=== PATIENT | male | born 1955 | race Caucasian/White ===

== ENCOUNTER → 2020-01-06 11:31 | Outpatient (BNVA) | payer OTHER, SELFPAY | PROVIDERS: PCP Family Medicine; Visit Provider Internal Medicine Endocrinology, Diabetes & Metabolism | DX: E11.65 Type 2 diabetes mellitus with hyperglycemia (principal); E11.42 Type 2 diabetes mellitus with diabetic polyneuropathy; E11.319 Type 2 diabetes mellitus with unspecified diabetic retinopathy without macular edema; E78.5 Hyperlipidemia, unspecified; I10 Essential (primary) hypertension; E66.3 Overweight; Z68.25 Body mass index [BMI] 25.0-25.9, adult; Z79.4 Long term (current) use of insulin; Z79.899 Other long term (current) drug therapy | CPT/HCPCS: 82947; 99212 ==

== ENCOUNTER 2020-01-18 15:15 | Outpatient (REF) | payer OTHER, SELFPAY | END 2020-01-18 15:16 | disposition home or self-care (01) | LOC: HO.LAB 15:15 | PROVIDERS: Visit Provider Internal Medicine | DX: Z20.828 Contact with and (suspected) exposure to other viral communicable diseases (principal) | CPT/HCPCS: C9803; U0003 ==

== ENCOUNTER → 2020-04-06 09:48 | Outpatient (BNVA) | payer OTHER, SELFPAY | PROVIDERS: PCP Family Medicine; Visit Provider Internal Medicine Endocrinology, Diabetes & Metabolism | DX: E11.65 Type 2 diabetes mellitus with hyperglycemia (principal); E11.40 Type 2 diabetes mellitus with diabetic neuropathy, unspecified; E11.319 Type 2 diabetes mellitus with unspecified diabetic retinopathy without macular edema; E78.5 Hyperlipidemia, unspecified; E66.3 Overweight; I10 Essential (primary) hypertension | CPT/HCPCS: 82947; 99212 ==

== ENCOUNTER → 2020-08-27 11:45 | Outpatient (BNVA) | payer OTHER, SELFPAY | PROVIDERS: PCP Family Medicine; Visit Provider Nurse Practitioner Gerontology | DX: E11.65 Type 2 diabetes mellitus with hyperglycemia (principal); E11.40 Type 2 diabetes mellitus with diabetic neuropathy, unspecified; E11.319 Type 2 diabetes mellitus with unspecified diabetic retinopathy without macular edema; E78.5 Hyperlipidemia, unspecified; E66.3 Overweight; Z68.27 Body mass index [BMI] 27.0-27.9, adult; I10 Essential (primary) hypertension; Z71.3 Dietary counseling and surveillance; Z79.4 Long term (current) use of insulin | CPT/HCPCS: 82947; 99212 ==

== ENCOUNTER → 2020-11-27 07:40 | Outpatient (BNVA) | payer OTHER, SELFPAY | PROVIDERS: PCP Family Medicine; Visit Provider Nurse Practitioner Gerontology | DX: E11.65 Type 2 diabetes mellitus with hyperglycemia (principal); E11.40 Type 2 diabetes mellitus with diabetic neuropathy, unspecified; E11.319 Type 2 diabetes mellitus with unspecified diabetic retinopathy without macular edema; E78.5 Hyperlipidemia, unspecified; E66.3 Overweight; I10 Essential (primary) hypertension | CPT/HCPCS: 82947; 83036; 99212 ==

== ENCOUNTER → 2020-12-31 12:53 | Outpatient (BNVA) | payer OTHER, SELFPAY | PROVIDERS: PCP Family Medicine; Visit Provider Registered Nurse Diabetes Educator | DX: E11.65 Type 2 diabetes mellitus with hyperglycemia (principal); E11.40 Type 2 diabetes mellitus with diabetic neuropathy, unspecified; E11.319 Type 2 diabetes mellitus with unspecified diabetic retinopathy without macular edema; E78.5 Hyperlipidemia, unspecified; E66.9 Obesity, unspecified; I10 Essential (primary) hypertension; F17.210 Nicotine dependence, cigarettes, uncomplicated; Z79.4 Long term (current) use of insulin; Z96.41 Presence of insulin pump (external) (internal); Z46.81 Encounter for fitting and adjustment of insulin pump | CPT/HCPCS: 99211 ==

== ENCOUNTER → 2021-02-06 12:35 | Outpatient (BNVA) | payer OTHER, SELFPAY | PROVIDERS: PCP Family Medicine; Visit Provider Registered Nurse Diabetes Educator | DX: E11.319 Type 2 diabetes mellitus with unspecified diabetic retinopathy without macular edema (principal) | CPT/HCPCS: 99211 ==

== ENCOUNTER → 2021-04-04 13:01 | Outpatient (BNVA) | payer OTHER, SELFPAY | PROVIDERS: PCP Family Medicine; Visit Provider Nurse Practitioner Gerontology | DX: E11.65 Type 2 diabetes mellitus with hyperglycemia (principal); E11.40 Type 2 diabetes mellitus with diabetic neuropathy, unspecified; E11.319 Type 2 diabetes mellitus with unspecified diabetic retinopathy without macular edema; E66.3 Overweight | CPT/HCPCS: 82947; 83036; 99212 ==

== ENCOUNTER → 2021-05-29 10:50 | Outpatient (BNVA) | payer OTHER, SELFPAY | PROVIDERS: PCP Family Medicine; Visit Provider Registered Nurse Diabetes Educator | DX: E11.319 Type 2 diabetes mellitus with unspecified diabetic retinopathy without macular edema (principal); Z79.4 Long term (current) use of insulin; Z96.41 Presence of insulin pump (external) (internal) | CPT/HCPCS: 99211 ==

== ENCOUNTER 2021-07-05 10:04 | Outpatient (REF) | payer OTHER, SELFPAY ==
[2021-07-05 11:13] LABS: Alanine Aminotransferase 14 U/L (0-40); Albumin Level 4.2 g/dL (3.5-5.0); Alkaline Phosphatase 73 U/L (39-117); Anion Gap 9 (12-20); Aspartate Amino Transferase 17 U/L (5-37); Bilirubin Total 0.4 mg/dL (0.0-1.0); Blood Urea Nitrogen 17 mg/dL (9-16); Calcium 9.5 mg/dL (8.4-10.2); Carbon Dioxide 25 mmol/L (22-29); Chloride 104 mmol/L (96-108); Cholesterol 159 mg/dL; Estimated Glomerular Filt Rate > 60; Glucose Fasting 127 mg/dL (60-99); HDL Cholesterol 28 mg/dL; LDL Cholesterol Calculated 85 mg/dl; Potassium 4.3 mmol/L (3.3-5.1); Sodium 134 mmol/L (135-145); Total Protein 7.4 g/dL (6.5-8.0); Triglycerides 233 mg/dL
[2021-07-05 11:51] LABS: Vitamin B12 312 pg/mL (200-900)
[2021-07-05 12:47] LABS: Creatinine Urine 84.26 mg/dL; Microalbum/Creatinine Ratio Ur 100.8 ug/mg cr
[2021-07-07 03:31] LABS: LDL Cholesterol Direct 86 mg/dL (<100)
== END 2021-07-05 10:05 | disposition home or self-care (01) ==
LOC: HO.LAB 10:04
PROVIDERS: PCP Family Medicine; Visit Provider Nurse Practitioner Gerontology
DX: E11.65 Type 2 diabetes mellitus with hyperglycemia (principal); E11.40 Type 2 diabetes mellitus with diabetic neuropathy, unspecified; E11.319 Type 2 diabetes mellitus with unspecified diabetic retinopathy without macular edema; E78.5 Hyperlipidemia, unspecified; E66.3 Overweight; I10 Essential (primary) hypertension; F17.210 Nicotine dependence, cigarettes, uncomplicated; Z96.41 Presence of insulin pump (external) (internal); Z71.3 Dietary counseling and surveillance; Z89.422 Acquired absence of other left toe(s); Z79.4 Long term (current) use of insulin; Z79.899 Other long term (current) drug therapy
CPT/HCPCS: 36415; 80053; 80061; 82043; 82607; 82947; 83036; 83721; 99212

== ENCOUNTER 2022-05-02 07:51 | Outpatient (REF) | payer MEDICAID, SELFPAY ==
[2022-05-02 09:49] LABS: Glucose Random 233 mg/dL (60-115)
[2022-05-03 17:52] LABS: C Peptide 0.69 ng/mL (0.80-3.85)
== END 2022-05-02 07:52 | disposition home or self-care (01) ==
LOC: HO.LAB 07:51
PROVIDERS: PCP Family Medicine; Visit Provider Internal Medicine Endocrinology, Diabetes & Metabolism
DX: E11.65 Type 2 diabetes mellitus with hyperglycemia (principal)
CPT/HCPCS: 36415; 82947; 83036; 84681; 99212

== ENCOUNTER → 2022-05-15 08:54 | Outpatient (BNVA) | payer MEDICAID, SELFPAY | PROVIDERS: PCP Family Medicine; Visit Provider Dietitian, Registered | DX: E11.65 Type 2 diabetes mellitus with hyperglycemia (principal) | CPT/HCPCS: 97802 ==

== ENCOUNTER → 2022-06-30 12:50 | Outpatient (BNVA) | payer MEDICAID, SELFPAY | PROVIDERS: PCP Family Medicine; Visit Provider Dietitian, Registered | DX: E11.65 Type 2 diabetes mellitus with hyperglycemia (principal) | CPT/HCPCS: 97803 ==

== ENCOUNTER → 2022-07-28 11:24 | Outpatient (BNVA) | payer MEDICAID, SELFPAY | PROVIDERS: PCP Family Medicine; Visit Provider Registered Nurse Diabetes Educator | DX: Z46.81 Encounter for fitting and adjustment of insulin pump (principal); E11.40 Type 2 diabetes mellitus with diabetic neuropathy, unspecified | CPT/HCPCS: 99211 ==

== ENCOUNTER 2022-10-23 11:28 | Outpatient (AMB) | payer MEDICAID, SELFPAY ==
--- NOTE | 2022-10-23 11:29 | A.OFFVIS_ITS ---
Intake Vital Signs 10/23/22 11:30 Height 6 ft Weight 204 lb 12.951 oz BMI 27.8 BP 134/54 L Blood Pressure Location Lt brachial Position Sitting Pulse 77 Pulse Source Pulse Oximeter Intake Visit Reasons: DM Intake Note: Patient present today to follow up on Type Diabetes Mellitus. Patient receives DME supplies through: [employer] Patient receives pump supplies through: [employer] Last Diabetic Eye exam: 04/2022 Last Podiatry Visit: None Random Glucose: 316 mg/dl HgA1C: 9.3% Lab Intern Required: No Accompanied by: Self / Same As Patient Allergies No Known Allergies Allergy (Verified 10/23/22 11:33) Medication List - Last Reconciled 10/23/22 by Antony Miller MD ammonium lactate 12% 1 appl topical BID 30 days aspirin (Adult Aspirin Regimen) 81 mg PO DAILY blood sugar diagnostic (FreeStyle Lite Strips) As directed 3 times a day blood-glucose meter (FreeStyle Lite Meter kit) As directed blood-glucose sensor (Dexcom G6 Sensor device) As directed blood-glucose transmitter (Dexcom G4 Transmitter device) As directed clopidogrel (Plavix) 75 mg PO DAILY [diabetic shoes extra depth orthopedic shoes ( 1 pair ) with customize heat molded multi density inner soles ( 3 pair) Dispense 1 Sig: As directed DX: And IDDM /polyneuropathy ( E11 0.42 ); hammertoe foot deformity ( M 20.41, and 20.42 ) pre ulcerative skin lesion ( L 85.1 ) Diagnosis ( E11 0.42 ) type 2 diabetes with polyneuropathy] [Diabetic shoes & 3 pair inserts as directed] dolutegravir-rilpivirine 50-25 mg (Juluca) 1 tab PO DAILY insulin aspart U-100 (Novolog U-100 Insulin aspart) up to 100 units via pump subcut daily; lancets (FreeStyle Lancets) As directed lisinopril 30 mg PO DAILY rosuvastatin 40 mg PO DAILY HPI HPI Comments History of Present Illness Details Patient is a 66-year-old male with DM type 2 diagnosed 25 years ago who presents for management of diabetes Past medical history includes : DM2, HTN, HLD, amputations of 2 toes on left foot in 2019. Micro and macrovascular complications: retinopathy, neuropathy Diabetes medications: Novolog via Tandem T-slim pump. Patient: Pito Torres Basal rate(s) (units/hour) : ?New 12 AM to 6 AM? 1.85 units / hr ?New 6 AM to 10:30 AM? 1.65 units / hr 10:30 AM to 4 PM? 1.35 units / hr 4 PM to 5 PM? 1.35 units / hr 5 PM to 8 PM? 1.75 units / hr 8 PM to 12 AM 1.850 units / hr Bolus setting Insulin Carbohydrate Ratio (s) 12 AM? to 4PM 1:5.5 5 PM to 12 AM? 1:5 ? Correction Factor / Sensitivity Factor 12 AM? to 12 AM? 1:20 Active Insulin Time:? 3 hours Target(s): 12 AM? to 12 AM? 115 mg/dL Insulin doses 86.56. 45% is basal and 46% is bolus with 9% correction per He is not using the sensor but average glucose is 174 with range of 82-265. He is testing 5 times a day MR#: [id number] : 1955 Acct:[id number] Age/Sex: 66 / M ADM/SER Date: 07/28/22 Loc: [facility] ADM/SER Time:1124 Attending Provider: Seema Patino RN cc: LANDEN CHAVEZ MD~ Intake Intake Visit Reasons:?DM Lab Intern Required: No Accompanied by: Self / Same As Patient Allergies No Known Allergies Allergy (Verified 05/02/22 07:59) HPI Comprehensive Diabetes Asmnt Most Recent Diabetes Results: ?? ? Microalb/Creat Rat io 100.8 ug/mg cr 07/05/21 ?? ? Cholesterol 159 mg/dL 07/05/21 ?? ? HDL Cholesterol 28 mg/dL 07/05/21 ?? ? Triglycerides 233 mg/dL 07/05/21 ?? ? Creatinine 0.98 mg/dL (0.5-1 .4) 07/05/21 ?? ? Blood Urea Nitroge n 17 mg/dL (9-16)? H 07/05/21 ?? ? Sodium 134 mmol/L (135-1 45)? L 07/05/21 ?? ? Potassium 4.3 mmol/L (3.3-5 .1) 07/05/21 ?? ? Chloride 104 mmol/L (96-10 8) 07/05/21 ?? ? Carbon Dioxide 25 mmol/L (22-29) 07/05/21 ?? ? Calcium 9.5 mg/dL (8.4-10 .2) 07/05/21 ?? ? AST 17 U/L (5-37) 07/05/21 ?? ? ALT 14 U/L (0-40) 07/05/21 ?? ? Total Protein 7.4 g/dL (6.5-8.0 ) 07/05/21 ?? ? Albumin 4.2 g/dL (3.5-5.0 ) 07/05/21 ? [facility] Medical History? Diabetes type 2, uncontrolled Diabetic neuropathy associated with type 2 diabetes mellitus Diabetic retinopathy associated with type 2 diabetes mellitus Dyslipidemia Hypertension Overweight (BMI 25.0-29.9) Surgical History? History of amputation of toe Hx of cholecystectomy Family History? Father?? Diabetes mellitusMother?? Diabetes mellitus Social History? Household Members:? Family Alcohol intake:? never Patient Tobacco Use Status:? Current everyday Tobacco user Cigarettes Per Day:? 4 Years Smoked:? 35 - Hypoglycemia: none Hyperglycemia: denies polyuria Because of pump malfunction, were unable to the download pump or sensor [facility] - dietitian - working with 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 - goes regularly, every 2-3 months Ophthalmology - 04/2022 Laboratory Tests 07/05/21 07/05/21 07/05/21 10:30 10:30 10:30 Creatinine 0.98 Estimated GFR > 60 Triglycerides 233 Cholesterol 159 LDL Cholesterol Di rect Pending LDL Cholesterol, C alc 85 HDL Cholesterol 28 Vitamin B12 Pending [facility] Medical History Diabetes type 2, uncontrolled Diabetic neuropathy associated with type 2 diabetes mellitus Diabetic retinopathy associated with type 2 diabetes mellitus Dyslipidemia Hypertension Overweight (BMI 25.0-29.9) Surgical History History of amputation of toe Hx of cholecystectomy Family History Father Diabetes mellitus Mother Diabetes mellitus Social History Household Members: Family Alcohol intake: never Patient Tobacco Use Status: Current everyday Tobacco user Cigarettes Per Day: 4 Years Smoked: 35 Physical Exam Vital Signs: Last Vital Signs Pulse 77 10/23/22 11:30 BP 134/54 L 10/23/22 11:30 BMI result Body Mass Index 27.8 Absence of Cushingoid features. Absence of acromegalic features. Neck exam reveals nl size thyroid about 15 gms. No thyroid nodules palpable. No carotid bruits present. Lungs CTA. Heart S1 S2, Reg R/R. No M/R/ G. Skin exam reveals absence of vitiligo or acanthosis nigricans. Abdominal exam reveals Soft NT/ND with NA BS. No organomegaly present. Neck Other: . Extrem Other: Visual exam of foot performed. No ulcerations or open lesions. No onchomycosis, no callouses.Pulses 2 + distally Sensation decresed to monofilament exam. Vibratory sensation sensed is decreased with 128 Hz tuning fork Results AMB Hemoglobin A1c AMB Hemoglobin A1c 9.3 % Last Edit by Salima Mendiola on 10/23/22 11:49 Results Reviewed Results Reviewed: 10/23/22 11:39 Glucose, Whole Blood Routine Laboratory Last Values Glucose (Clinic) 316 mg/dL (60-115) H 10/23/22 11:39 Assessment & Plan Assessment & Plan (1) Diabetes type 2, uncontrolled: Code(s): E11.65 - Type 2 diabetes mellitus with hyperglycemia Plan: This 66-year-old male with history of type 2 diabetes being treated with a tandem T-slim X 2 pump with control IQ with with poor glycemic control and known microvascular complications namely retinopathy and neuropathy. Plan is to have the patient obtain the G6 sensor to link to the tandem. I did not make any changes to the regimen today for lack of data. I will also check anti- PHANI 65 antibodies and if negative could consider using a G LP 1 in combination with the insulin pump. Patient will follow up with personal development educator. Will also check lipid profile microalbumin to creatinine ratio Orders: Orders Glutamic acid decarboxylase Ab Today E11.65 - Type 2 diabetes mellitus with hyperglycemia Lipid Panel Today E11.65 - Type 2 diabetes mellitus with hyperglycemia Microalbumin, Random (w Creat) Today E11.65 - Type 2 diabetes mellitus with hyperglycemia AMB Hemoglobin A1c Today E11.319 - Type 2 diabetes mellitus with unspecified diabetic retinopathy without macular edema Medications: New [diabetic shoes] extra depth orthopedic shoes ( 1 pair ) with customize heat molded multi density inner soles ( 3 pair) Dispense 1 Sig: As directed DX: And IDDM /polyneuropathy ( E11 0.42 ); hammertoe foot deformity ( M 20.41, and 20.42 ) pre ulcerative skin lesion ( L 85.1 ) Diagnosis ( E11 0.42 ) type 2 diabetes with polyneuropathy 1 ea 0RF Coding Level of Care Code Est Pt Level 4 (36140) Diagnoses Diabetes type 2, uncontrolled E11.65
[2022-10-23 11:30] VITALS: BP 134/54; PULSE 77; BMI 27.8
[2022-10-23 11:43] LABS: Glucose, Whole Blood 316 mg/dL (60-115)
== END 2022-10-23 12:42 | disposition home or self-care (01) ==
PROVIDERS: PCP Family Medicine; Visit Provider Internal Medicine Endocrinology, Diabetes & Metabolism
DX: E11.65 Type 2 diabetes mellitus with hyperglycemia (principal); E11.319 Type 2 diabetes mellitus with unspecified diabetic retinopathy without macular edema
CPT/HCPCS: 99214

== ENCOUNTER → 2022-10-23 11:28 | Outpatient (BNVA) | payer MEDICAID, SELFPAY | PROVIDERS: PCP Family Medicine; Visit Provider Internal Medicine Endocrinology, Diabetes & Metabolism | DX: E11.65 Type 2 diabetes mellitus with hyperglycemia (principal) | CPT/HCPCS: 82947; 83036; 99212 ==

== ENCOUNTER 2022-11-26 11:38 | Outpatient (AMB) | payer MEDICAID, SELFPAY ==
--- NOTE | 2022-11-26 11:41 | A.OFFVIS_ITS ---
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 Required: No Accompanied by: Self / Same As Patient Allergies No Known Allergies Allergy (Verified 10/23/22 11:33) HPI Comprehensive Diabetes Asmnt Most Recent Diabetes Results: No Data to Display [facility] Medical History Diabetes type 2, uncontrolled Diabetic neuropathy associated with type 2 diabetes mellitus Diabetic retinopathy associated with type 2 diabetes mellitus Dyslipidemia Hypertension Overweight (BMI 25.0-29.9) Surgical History History of amputation of toe Hx of cholecystectomy Family History Father Diabetes mellitus Mother Diabetes mellitus Social History Household Members: Family Alcohol intake: never Patient Tobacco Use Status: Current everyday Tobacco user Cigarettes Per Day: 4 Years Smoked: 35 Assessment & Plan Assessment & Plan (1) Diabetic neuropathy associated with type 2 diabetes mellitus: Code(s): E11.40 - Type 2 diabetes mellitus with diabetic neuropathy, unspecified Plan: Patient presents for pump training for? T slim with control IQ Dexcom G6 The following topics were reviewed today: Patient is now using integrated system - Sensor setting (if applicable) ??? High Alert: 180 mg/dl increased high target to 200 mg/dL, also set I alerts to go off every 2 hours instead of every 15 minutes ??? Low Alert: 80 mg/dl Patient's average glucose for the past 2 weeks 181 mg/dL Patient above target 43% Patient at target 56% Patient below target 1% Reviewed patient he is experiencing hyperglycemia between approximately 10:30 to 17:00. Discussed options for improving glucose level at that time. Patient opted to increase basal rate for that period of time see changes below Reviewed with patient importance of changing insulin delivery set/Pod every 72 hours, with site rotation. Patient given the opportunity to ask questions about pump function Setting verified by RD/CDE. Basal rate(s) (units/hour) : 12 AM to 6 AM? 1.85 units / hr 6 AM to 10:30 AM? 1.65 units / hr 10:30 AM to 4 PM? 1.35 units / hr New 10:30 AM to 4 PM? 1.65 units / hr 4 PM to 5 PM? 1.35 units / hr New 4 PM to 5 PM? 1.65 units / hr 5 PM to 8 PM? 1.75 units / hr 8 PM to 12 AM 1.850 units / hr Bolus setting Insulin Carbohydrate Ratio (s) 12 AM? to 4PM 1:5.5 4 PM to 12 AM? 1:5 ? Correction Factor / Sensitivity Factor 12 AM? to 12 AM? 1:20 Active Insulin Time:? 3 hours Target(s): 12 AM? to 12 AM? 110 mg/dL Patient Instructions: Patient will follow-up with family educator in 1 month Coding Level of Care Code Est Pt Level 1 (77343) Diagnoses Diabetic neuropathy associated with type 2 diabetes mellitus E11.40
== END 2022-11-26 12:05 | disposition home or self-care (01) ==
PROVIDERS: PCP Family Medicine; Visit Provider Registered Nurse Diabetes Educator
DX: E11.40 Type 2 diabetes mellitus with diabetic neuropathy, unspecified (principal)

== ENCOUNTER → 2022-11-26 11:38 | Outpatient (BNVA) | payer MEDICAID, SELFPAY | PROVIDERS: Visit Provider Registered Nurse Diabetes Educator | DX: Z46.81 Encounter for fitting and adjustment of insulin pump (principal); E11.40 Type 2 diabetes mellitus with diabetic neuropathy, unspecified; Z79.4 Long term (current) use of insulin | CPT/HCPCS: 99211 ==

== ENCOUNTER 2023-06-30 07:52 | Outpatient (REF) | payer MEDICAID, SELFPAY ==
[2023-06-30 09:03] LABS: Creatinine Urine 152.14 mg/dL; Microalbum/Creatinine Ratio Ur 80.8 ug/mg cr (<30)
[2023-06-30 09:05] LABS: Cholesterol 155 mg/dL (<200); HDL Cholesterol 33 mg/dL (>40); LDL Cholesterol Calculated 100 mg/dL (<100); Triglycerides 114 mg/dL (<150)
[2023-07-03 21:43] LABS: Glutamic acid decarboxylase Ab <5 IU/mL (<5)
== END 2023-06-30 07:53 | disposition home or self-care (01) ==
LOC: HO.LAB 07:52
PROVIDERS: PCP Family Medicine; Visit Provider Internal Medicine Endocrinology, Diabetes & Metabolism
DX: E11.65 Type 2 diabetes mellitus with hyperglycemia (principal)
CPT/HCPCS: 36415; 80061; 82043; 82570; 86341

== ENCOUNTER 2023-07-01 11:25 | Outpatient (AMB) | payer MEDICAID, SELFPAY ==
[2023-07-01 11:28] VITALS: BP 142/64; PULSE 78; BMI 28.9
--- NOTE | 2023-07-01 11:28 | A.OFFVIS_ITS ---
Vital Signs 07/01/23 11:28 Height 6 ft Weight 212 lb 15.465 oz BMI 28.9 BP 142/64 H Blood Pressure Location Lt brachial Position Sitting Pulse 78 Pulse Source Pulse Oximeter Intake Visit Reasons: DM Intake Note: Patient presents today to follow up on D2MT. Last Diabetic Eye exam: 01/2023 Last Podiatry Visit:Doesn't have one Random Glucose: 237 mg/dl HgA1c: 8.9% [employer] Planner Required: No Accompanied by: Self / Same As Patient Allergies No Known Allergies Allergy (Verified 07/01/23 11:32) HPI Comments Details: Patient is a 66-year-old male with DM type 2 diagnosed 25 years ago who presents for management of diabetes Past medical history includes : DM2, HTN, HLD, amputations of 2 toes on left foot in 2019. Micro and macrovascular complications: retinopathy, neuropathy Diabetes medications: Novolog via Tandem T-slim pump. Patient: Pito Torres Basal rate(s) (units/hour) : 12 AM to 6 AM? 1.85 units / hr 6 AM to 10:30 AM? 1.65 units / hr 10:30 AM to 4 PM? 1.35 units / hr New 10:30 AM to 4 PM? 1.65 units / hr 4 PM to 5 PM? 1.35 units / hr New 4 PM to 5 PM? 1.65 units / hr 5 PM to 8 PM? 1.75 units / hr 8 PM to 12 AM 1.850 units / hr Bolus setting Insulin Carbohydrate Ratio (s) 12 AM? to 4PM 1:5.5 5 PM to 12 AM? 1:5 ? Correction Factor / Sensitivity Factor 12 AM? to 12 AM? 1:20 Active Insulin Time:? 3 hours Target(s): 12 AM? to 12 AM? 110 mg/dL Patient Instructions: Insulin doses 100.1. 41% is basal and 59% is bolus with 17% correction per Dexcom download shows he is using the sensor 91.4% of the time. Average glucose is 171 with G mi of 7.4%. Glucoses remained 61% of the time with 38% hyperglycemia at 1% hypoglycemia. Patent shows post-breakfast and post-mid afternoon elevations Rare hypoglycemia Saw optho 6 mos a go MR#: [id number] : 1955 Acct:[id number] Age/Sex: 66 / M ADM/SER Date: 07/28/22 Loc: [facility] ADM/SER Time:1124 Attending Provider: Seema Patino RN cc: LANDEN CHAVEZ MD~ Intake Intake Visit Reasons:?DM [employer] Planner Required: No Accompanied by: Self / Same As Patient Allergies No Known Allergies Allergy (Verified 05/02/22 07:59) HPI Comprehensive Diabetes Asmnt Most Recent Diabetes Results: ?? ? Microalb/Creat Ratio 100.8 ug/mg cr 07/05/21 ?? ? Cholesterol 159 mg/dL 07/05/21 ?? ? HDL Cholesterol 28 mg/dL 07/05/21 ?? ? Triglycerides 233 mg/dL 07/05/21 ?? ? Creatinine 0.98 mg/dL (0.5-1.4) 07/05/21 ?? ? Blood Urea Nitrogen 17 mg/dL (9-16)? H 07/05/21 ?? ? Sodium 134 mmol/L (135-145)? L 07/05/21 ?? ? Potassium 4.3 mmol/L (3.3-5.1) 07/05/21 ?? ? Chloride 104 mmol/L (96-108) 07/05/21 ?? ? Carbon Dioxide 25 mmol/L (22-29) 07/05/21 ?? ? Calcium 9.5 mg/dL (8.4-10.2) 07/05/21 ?? ? AST 17 U/L (5-37)B 07/05/21 ?? ? ALT 14 U/L (0-40) 07/05/21 ?? ? Total Protein 7.4 g/dL (6.5-8.0) 07/05/21 ?? ? Albumin 4.2 g/dL (3.5-5.0) 07/05/21 ? PFSH Medical History? Diabetes type 2, uncontrolled Diabetic neuropathy associated with type 2 diabetes mellitus Diabetic retinopathy associated with type 2 diabetes mellitus Dyslipidemia Hypertension Overweight (BMI 25.0-29.9) Surgical History? History of amputation of toe Hx of cholecystectomy Family History? Father?? Diabetes mellitusMother?? Diabetes mellitus Social History? Household Members:? Family Alcohol intake:? never Patient Tobacco Use Status:? Current everyday Tobacco user Cigarettes Per Day:? 4 Years Smoked:? 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 regularly, every 2-3 months Ophthalmology - 04/2022 Laboratory Tests 07/05/21 07/05/21 07/05/21 10:30 10:30 10:30 Creatinine 0.98 Estimated GFR > 60 Triglycerides 233 Cholesterol 159 LDL Cholesterol Direct Pending LDL Cholesterol, Calc 85 HDL Cholesterol 28 Vitamin B12 Pending [facility] Medical History Diabetes type 2, uncontrolled Diabetic neuropathy associated with type 2 diabetes mellitus Diabetic retinopathy associated with type 2 diabetes mellitus Dyslipidemia Hypertension Overweight (BMI 25.0-29.9) Surgical History History of amputation of toe Hx of cholecystectomy Family History Father Diabetes mellitus Mother Diabetes mellitus Social History Household Members: Family Alcohol intake: never Patient Tobacco Use Status: Current everyday Tobacco user Cigarettes Per Day: 4 Years Smoked: 35 Physical Exam Vital Signs: Last Vital Signs Pulse 78 07/01/23 11:28 BP 142/64 H 07/01/23 11:28 BMI result Body Mass Index 28.9 Absence of Cushingoid features. Absence of acromegalic features. Neck exam reveals nl size thyroid about 15 gms. No thyroid nodules palpable. No carotid bruits present. Lungs CTA. Heart S1 S2, Reg R/R. No M/R/ G. Skin exam reveals absence of vitiligo or acanthosis nigricans. Abdominal exam reveals Soft NT/ND with NA BS. No organomegaly present. Neck Other: . Extrem Other: S/P amputations of R 4th and 5th toes Visual exam of foot performed. No ulcerations or open lesions. No onchomycosis, no callouses.Pulses 2 + distally Sensation decresed to monofilament exam. Vibratory sensation sensed is decreased with 128 Hz tuning fork Results AMB Hemoglobin A1c AMB Hemoglobin A1c 8.9 % Last Edit by NALLELY Gayle on 07/01/23 11:45 Results Reviewed Results Reviewed: Laboratory Last Values Glucose (Clinic) 237 mg/dL (60-115) H 07/01/23 11:35 Hgb A1c (Clinic) 8.9 % (4.0-6.0) H 07/01/23 11:38 Assessment & Plan Assessment & Plan (1) Diabetes type 2, uncontrolled: Code(s): E11.65 - Type 2 diabetes mellitus with hyperglycemia Category: Medical Plan: This 67-year-old male with history of type 2 diabetes being treated with a tandem T-slim X 2 pump with control IQ with with good but not optimal improved glycemic control and known microvascular complications namely retinopathy and neuropathy. Plan is to to await anti-yolande 65 antibodies. If negative, we will initiate a GLP 1 namely Ozempic. . Patient will follow up with life skills educator. Could also consider initiating an SGLT 2 inhibitor in future considering micro albuminuria. If antibodies are positive would consider tightening bolus Orders: Orders AMB Hemoglobin A1c Today E11.40 - Type 2 diabetes mellitus with diabetic neuropathy, unspecified, E11.65 - Type 2 diabetes mellitus with hyperglycemia, Z13.9 - Encounter for screening, unspecified Coding Level of Care Code Est Pt Level 4 (68723) Diagnoses Diabetes type 2, uncontrolled E11.65
[2023-07-01 11:39] LABS: Glucose, Whole Blood 237 mg/dL (60-115)
== END 2023-07-01 16:22 | disposition home or self-care (01) ==
PROVIDERS: PCP Family Medicine; Visit Provider Internal Medicine Endocrinology, Diabetes & Metabolism
DX: Z13.9 Encounter for screening, unspecified (principal); E11.40 Type 2 diabetes mellitus with diabetic neuropathy, unspecified; E11.65 Type 2 diabetes mellitus with hyperglycemia
CPT/HCPCS: 99214

== ENCOUNTER → 2023-07-01 11:25 | Outpatient (BNVA) | payer MEDICAID, SELFPAY | PROVIDERS: PCP Family Medicine; Visit Provider Internal Medicine Endocrinology, Diabetes & Metabolism | DX: E11.65 Type 2 diabetes mellitus with hyperglycemia (principal); Z79.4 Long term (current) use of insulin; Z96.41 Presence of insulin pump (external) (internal) | CPT/HCPCS: 82947; 83036; 99212 ==

== ENCOUNTER 2023-11-25 07:32 | Outpatient (AMB) | payer SELFPAY ==
--- NOTE | 2023-11-25 07:10 | A.OFFVIS_ITS ---
Vital Signs 11/25/23 07:34 Height 6 ft Weight 202 lb 9.677 oz BMI 27.5 BP 140/60 H Blood Pressure Location Lt brachial Position Sitting Pulse 72 Pulse Source Pulse Oximeter Intake Visit Reasons: dm/CONFIRMED Intake Note: Patient presents today for D2CT follow up visit. 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 He was last seen by Seema MIN 11/[address] Miller 07/01/2023 at which time his basal rates were increased on his pump. PHANI antibodies were negative 06/30. cpeptide 0.69. Most recent hemoglobin A1c 11/25/2023 10.3% up from 8.9% 06/2023. Past medical history includes : DM2, HTN, HLD, amputations of 2 toes on left foot in 2019. Micro and macrovascular complications: retinopathy, neuropathy Previously was on metformin in the past. Diabetes medications: Novolog via Tandem T-slim pump. Basal rate(s) (units/hour) : 12 AM to 6 AM? 1.85 units / hr 6 AM to 10:30 AM? 1.65 units / hr 10:30 AM to 4 PM? 1.65 units / hr r 4 PM to 5 PM? 1.65 units / hr 5 PM to 8 PM? 1.75 units / hr 8 PM to 12 AM 1.850 units / hr Bolus setting Insulin Carbohydrate Ratio (s) 12 AM? to 4PM 1:5.5 5 PM to 12 AM? 1:5 ? Correction Factor / Sensitivity Factor 12 AM? to 12 AM? 1:20 Active Insulin Time:? 3 hours Target(s): 12 AM? to 12 AM? 110 mg/dL Total daily dose of insulin 75 units basal 50% 37 units bolus 50% 37 units average daily bolus is 6 per day average daily carbs 133 Dexcom average glucose: [175 ] 14 day continuous glucose monitor report reviewed Days with CGM data 32 % Time in ranges: Twelve % very high (above 250) 26 % high ?(181-250) 62 % in range ?(70-180] 0.2 % low (69-55) 0 % ?very low (below 54) No substantial lows, numbers overall 40 points above desired with a rise in glucose after breakfast, patient reports 2 slice of toast and coffee entering as 40 carb grams. Rare hypoglycemia, treats with half a glass of juice does not have glucose tablets. Neuropathy: + numbness, tingling no cramping in lower extremities, wears dm shoes has been seen in this week and reports he has had a prior KELSEY. Sees Podiatry on a regular basis Retinopathy: last eye exam + Nephropathy: He is on an Yeison inhibitor. labs done: 06/2023 microalbumin 123, 2021: eGFR >60 HLD 06/30 100 on statin Nutrition: last seen 2022 [facility] Medical History Diabetes type 2, uncontrolled Diabetic neuropathy associated with type 2 diabetes mellitus Diabetic retinopathy associated with type 2 diabetes mellitus Dyslipidemia Hypertension Overweight (BMI 25.0-29.9) Surgical History History of amputation of toe Hx of cholecystectomy Family History Father Diabetes mellitus Mother Diabetes mellitus Social History Household Members: Family Alcohol intake: never Patient Tobacco Use Status: Current everyday Tobacco user Cigarettes Per Day: 4 Years Smoked: 35 Physical Exam Vital Signs: Last Vital Signs Pulse 72 11/25/23 07:34 BP 140/60 H 11/25/23 07:34 BMI result Body Mass Index 27.5 Const Other: Absence of Cushingoid features. Absence of acromegalic features. Neck exam reveals nl size thyroid about 15 gms. No thyroid nodules palpable. No carotid bruits present. Lungs CTA. Heart S1 S2, Reg R/R. No M/R G. Skin exam reveals absence of vitiligo or acanthosis nigricans. No edema Extrem Other: Visual exam of foot performed. Prior amputation right foot 4th and 5th toe. Hammertoes No ulcerations or open lesions. No inter digit maceration or fissuring. No onychomycosis, no callouses. Sensation diminished to monofilament exam. Vibratory sensation is absent left foot and diminished right with 128 Hz tuning fork. Office Procedures Glucose Monitoring Details Details: [place] [facility] [id number] - Glucose monitoring, continuous-physician I&R Procedure code (CPT) selection complete Results AMB Hemoglobin A1c AMB Hemoglobin A1c 10.3 % Last Edit by NALLELY Gayle on 11/25/23 07:55 Results Reviewed Results Reviewed: Laboratory Last Values Glucose (Clinic) 324 mg/dL (60-115) H 11/25/23 07:42 Hgb A1c (Clinic) 10.3 % (4.0-6.0) H 11/25/23 07:55 Laboratory Tests 07/05/21 05/02/22 10/23/22 10:30 09:04 11:41 Estimated GFR > 60 Hgb A1c (Clinic) 9.3 H C-Peptide 0.69 L LDL Cholesterol, Calc Urine Microalbumin 06/30/23 06/30/23 07/01/23 08:06 08:07 11:38 Estimated GFR Hgb A1c (Clinic) 8.9 H C-Peptide LDL Cholesterol, Calc 100 H Urine Microalbumin 123.0 Assessment & Plan Assessment & Plan (1) Diabetes type 2, uncontrolled: Code(s): E11.65 - Type 2 diabetes mellitus with hyperglycemia Category: Medical Plan: This 68-year-old male with history of type 2 diabetes being treated with a tandem T-slim X 2 pump with control IQ with i poor l glycemic control and known microvascular complications namely retinopathy and neuropathy. He is PHANI negative and I will try for mounjaro given his retinopathy and upward as tolerated. All side effects of GLP 1 agonist reviewed with patient and he was counseled that should he have any drops in his blood sugar that he should contact the office for pump adjustment. Today we reviewed backup insulin pump failure, Lantus 37 units once daily with the usual doses of Humalog, high glucose protocol, prevention in recognition of DKA, and foot care. Prescriptions were sent for nasal glucagon, ketone test strips, syringes for backup insulin administration, trulicity and Lantus. Orders: Orders AMB Hemoglobin A1c Today E11.65 - Type 2 diabetes mellitus with hyperglycemia, Z13.9 - Encounter for screening, unspecified AMB Glucose Monitoring Today E11.319 - Type 2 diabetes mellitus with unspecified diabetic retinopathy without macular edema Medications: New acetone (urine) test (Ketone Urine Test strips) P.r.n. glucose over 250, nausea, vomiting or illness t.i.d. p.r.n. 25 ea 1RF E11.40 - Type 2 diabetes mellitus with diabetic neuropathy, unspecified glucose (Dex4 Glucose) every 15 minutes until symptoms of low blood sugar are controlled 16 grams (4 x 4 gram) PO Q15M 30 days PRN 30 tabs 3RF hypoglycemia MDD 16 tablets insulin syringe-needle U-100 (BD Insulin Syringe Ultra-Fine) As directed prn pump failure or need for insulin injection up to qid prn 100 ea 1RF E11.319 - Type 2 diabetes mellitus with unspecified diabetic retinopathy without macular edema tirzepatide (Mounjaro) please inform us if PA is needed 2.5 mg (0.5 mL) subcut QWEEK 2 mL 2RF 4 weeks E11.319 - Type 2 diabetes mellitus with unspecified diabetic retinopathy without macular edema acetone (urine) test (Ketone Urine Test strips) P.r.n. glucose over 250, nausea, vomiting or illness t.i.d. p.r.n. 25 ea 1RF E11.40 - Type 2 diabetes mellitus with diabetic neuropathy, unspecified glucose (Dex4 Glucose) every 15 minutes until symptoms of low blood sugar are controlled 16 grams (4 x 4 gram) PO Q15M PRN 30 tabs 3RF hypoglycemia 30 days MDD 16 tablets insulin syringe-needle U-100 (BD Insulin Syringe Ultra-Fine) As directed prn pump failure or need for insulin injection up to qid prn 100 ea 1RF E11.319 - Type 2 diabetes mellitus with unspecified diabetic retinopathy without macular edema Baqsimi 3 mg/actuation (glucagon) 3 mg intranasal .prn 30 days PRN 2 ea 1RF Unresponsive hypoglycemia MDD 6 mg NS E11.319 - Type 2 diabetes mellitus with unspecified diabetic retinopathy without macular edema insulin glargine (Lantus U-100 Insulin) 37 units (0.37 mL) subcut DAILY 30 days PRN 10 mL 3RF pump failure MDD 37 units E11.319 - Type 2 diabetes mellitus with unspecified diabetic retinopathy without macular edema Baqsimi 3 mg/actuation (glucagon) 3 mg intranasal .prn PRN 2 ea 1RF Unresponsive hypoglycemia 30 days MDD 6 mg NS E11.319 - Type 2 diabetes mellitus with unspecified diabetic retinopathy without macular edema insulin glargine (Lantus U-100 Insulin) 37 units (0.37 mL) subcut DAILY PRN 10 mL 3RF pump failure 30 days MDD 37 units E11.319 - Type 2 diabetes mellitus with unspecified diabetic retinopathy without macular edema Patient Instructions: The patient was counseled to always carry a source of sugar and on the rule of 15's: Take 3 glucose tablets and repeat again in 15 minutes if blood sugar is not in normal range. Continue to repeat every 15 minutes until blood sugar is normal. The patient was counseled to achieve a target A1C of 7% (154 avg). Fasting blood sugars should be 90-130 in the morning and less than 180 two hours after meals. Reviewed the relationship between poor diabetic control and the development of complications Troubleshooting after starting new pod or inserting new insulin set: Occlusion, adhesive tape sensitivity, redness Check BG 2 hours after site change Safety information: Importance of a backup plan, for manual injections, proper prescriptions and emergency supplies ketone strips, and rules for testing for ketones The patient was counseled to wear closed toe shoes, never walk barefooted and to inspect the feet daily. For any signs of infection or open wound patient should notify PCP or go to urgent care. Coding Level of Care Code Est Pt Level 5 (73488) Complex EM visit Add On G2211 Diagnoses Diabetes type 2, uncontrolled E11.65 CPT Codes Details - CPT: 74770 - Glucose monitoring, continuous-physician I&R ([id number])
[2023-11-25 07:34] VITALS: BP 140/60; PULSE 72; BMI 27.5
[2023-11-25 07:47] LABS: Glucose, Whole Blood 324 mg/dL (60-115)
== END 2023-11-25 08:15 | disposition home or self-care (01) ==
PROVIDERS: PCP Family Medicine; Visit Provider Nurse Practitioner Adult Health
DX: Z13.9 Encounter for screening, unspecified (principal); E11.65 Type 2 diabetes mellitus with hyperglycemia
CPT/HCPCS: 95251; 99215

== ENCOUNTER → 2023-11-25 07:32 | Outpatient (BNVA) | payer MEDICAID, SELFPAY | PROVIDERS: PCP Family Medicine; Visit Provider Nurse Practitioner Adult Health | DX: E11.65 Type 2 diabetes mellitus with hyperglycemia (principal); E11.319 Type 2 diabetes mellitus with unspecified diabetic retinopathy without macular edema; E11.40 Type 2 diabetes mellitus with diabetic neuropathy, unspecified; E78.5 Hyperlipidemia, unspecified; I10 Essential (primary) hypertension; Z89.422 Acquired absence of other left toe(s) | CPT/HCPCS: 82947; 83036; 99212 ==

== ENCOUNTER 2024-04-26 14:29 | Outpatient (AMB) | payer MEDICARE, MEDICAID, SELFPAY ==
--- NOTE | 2024-04-26 08:35 | A.OFFVIS_ITS ---
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 glucose over 250, nausea, vomiting or illness t.i.d. p.r.n. ammonium lactate 12% 1 appl topical BID 30 days aspirin (Adult Aspirin Regimen) 81 mg PO DAILY Baqsimi 3 mg/actuation (glucagon) 3 mg intranasal .prn PRN 30 days MDD 6 mg NS blood sugar diagnostic (FreeStyle Lite Strips) As directed 3 times a day blood-glucose meter (FreeStyle Lite Meter kit) As directed blood-glucose sensor (Dexcom G6 Sensor device) As directed blood-glucose transmitter (Dexcom G4 Transmitter device) As directed clopidogrel (Plavix) 75 mg PO DAILY [diabetic shoes extra depth orthopedic shoes ( 1 pair ) with customize heat molded multi density inner soles ( 3 pair) Dispense 1 Sig: As directed DX: And IDDM /polyneuropathy ( E11 0.42 ); hammertoe foot deformity ( M 20.41, and 20.42 ) pre ulcerative skin lesion ( L 85.1 ) Diagnosis ( E11 0.42 ) type 2 diabetes with polyneuropathy] [diabetic shoes extra depth orthopedic shoes ( 1 pair ) with customize heat molded multi density inner soles ( 3 pair) Dispense 1 Sig: As directed DX: And IDDM /polyneuropathy ( E11 0.42 ); hammertoe foot deformity ( M 20.41, and 20.42 ) pre ulcerative skin lesion ( L 85.1 ) Diagnosis ( E11 0.42 ) type 2 diabetes with polyneuropathy] [Diabetic shoes & 3 pair inserts as directed] dolutegravir-rilpivirine 50-25 mg (Juluca) 1 tab PO DAILY glucose (Dex4 Glucose) 16 grams (4 x 4 gram) PO Q15M PRN 30 days MDD 16 tablets insulin aspart U-100 (Novolog U-100 Insulin aspart) up to 100 units via pump subcut daily; insulin glargine (Lantus U-100 Insulin) 37 units (0.37 mL) subcut DAILY PRN 30 days MDD 37 units insulin syringe-needle U-100 (BD Insulin Syringe Ultra-Fine) As directed prn pump failure or need for insulin injection up to qid prn lancets (FreeStyle Lancets) As directed lisinopril 30 mg PO DAILY rosuvastatin 40 mg PO DAILY tirzepatide (Mounjaro) 2.5 mg (0.5 mL) subcut QWEEK 4 weeks HPI Comments Details: Patient is a 68-year-old male with DM type 2 diagnosed 25 years ago who presents for management of diabetes. He was last seen 11/25/2023. Hemoglobin A1c 04/26/2024 , % 11/24/2409.3%. PHANI antibodies were negative 06/30. cpeptide 0.69. Past medical history includes : DM2, HTN, HLD, amputations of 2 toes on left foot in 2019. Micro and macrovascular complications: retinopathy, neuropathy Previously was on metformin in the past. Diabetes medications: Novolog via Tandem T-slim pump. Dexcom average glucose: 202 14 day continuous glucose monitor report reviewed Glucose Managment indicator 8.1 % Days with CGM data 96.3 % TIme in ranges: Twenty-eight % very high (above 250) 37 % high ?(181-250) 38 % in range ?(70-180] 0 % low (69-55) 0 % ?very low (below 54) Interpretation [ patient is not always entering carbs before the meal and his sugars are increasing postprandial and staying up at times for several hours then returning to normal] Basal rate(s) (units/hour) : 12 AM to 6 AM? 1.85 units / hr 6 AM to 10:30 AM? 1.65 units / hr 10:30 AM to 4 PM? 1.65 units / hr r 4 PM to 5 PM? 1.65 units / hr 5 PM to 8 PM? 1.75 units / hr 8 PM to 12 AM 1.850 units / hr Bolus setting Insulin Carbohydrate Ratio (s) 12 AM? to 4PM 1:5.5 new 1:5 5 PM to 12 AM? 1:5 ? Correction Factor / Sensitivity Factor 12 AM? to 12 AM? 1:20 Active Insulin Time:? 3 hours Target(s): 12 AM? to 12 AM? 110 mg/dL Total daily dose of insulin 110 units basal 33% 37 units bolus 67% 74 units average daily bolus is 17 per day average daily carbs 133 Rare hypoglycemia, treats with half a glass of juice does not have glucose tablets. Neuropathy: + numbness, tingling no pain, cramping in lower extremities, wears dm shoes reports he has had a prior KELSEY. Sees Podiatry on a regular basis last seen 4-6 months ago Has Retinopathy: last eye exam 1 year stable + Nephropathy: He is on an Yeison inhibitor. labs done: 06/2023 microalbumin 123, 2021: eGFR >60 HLD 06/30 100 on statin Nutrition: last seen 2022 [facility] Medical History Diabetes type 2, uncontrolled Diabetic neuropathy associated with type 2 diabetes mellitus Diabetic retinopathy associated with type 2 diabetes mellitus Dyslipidemia Hypertension Overweight (BMI 25.0-29.9) Surgical History History of amputation of toe Hx of cholecystectomy Family History Father Diabetes mellitus Mother Diabetes mellitus Social History Household Members: Family Alcohol intake: never Patient Tobacco Use Status: Current everyday Tobacco user Cigarettes Per Day: 4 Years Smoked: 35 Physical Exam Vital Signs: Last Vital Signs Pulse 85 04/26/24 14:31 BP 140/46 H 04/26/24 14:31 Pulse Ox 97 04/26/24 14:31 Oxygen Delivery Method Room Air 04/26/24 14:31 BMI result Body Mass Index 28.9 Const Other: Absence of Cushingoid features. Absence of acromegalic features. Neck exam reveals nl size thyroid about 15 gms. No thyroid nodules palpable. No carotid bruits present. Lungs CTA. Heart S1 S2, Reg R/R. No M/R G. Skin exam reveals absence of vitiligo or acanthosis nigricans. No edema Office Procedures Glucose Monitoring Details Details: see [facility] [id number] - Glucose monitoring, continuous-physician I&R Procedure code (CPT) selection complete Results AMB Hemoglobin A1c AMB Hemoglobin A1c 9.0 % Last Edit by NALLELY Gayle on 04/26/24 14:49 Results Reviewed Results Reviewed: Laboratory Last Values Glucose (Clinic) 190 mg/dL (60-115) H 04/26/24 14:38 Hgb A1c (Clinic) 9.0 % (4.0-6.0) H 04/26/24 14:48 Assessment & Plan Assessment & Plan (1) Diabetes type 2, uncontrolled: Code(s): E11.65 - Type 2 diabetes mellitus with hyperglycemia Category: Medical Plan: 68-year-old type 2 diabetic with nephropathy with a preserved renal function, retinopathy and neuropathy on an insulin pump with an A1c 04/26/2024 9.0% down from previous 10.5% Insulin to carb ratio was adjusted and patient was asked to bolus with insulin 15 minutes before the meal to prevent the postprandial rise. I will see him back in 1 month time to see if additional adjustments are needed. Reviewed backup pump failure plan which is Lantus 37 units plus usual doses of Humalog with the meals. Prescriptions for ketone testing strips glucose tablets diabetic shoes all sent. He has prescriptions for test strips and lancets and glucometer should his sensor fail and he does't have a back up. Handicap form completed but encourage to wlk when he is able. The patient had an opportunity to ask questions regarding treatment plan. The patient expressed understanding and agreement with the above treatment plan. The patient is aware they should contact our office by phone for worsening glucose readings or for any low blood sugars which may warrant a change in diabetes medication. Compliance is encouraged with medications and any followup testing/consults which may have been ordered. Orders: Orders Lipid Panel Today E11.65 - Type 2 diabetes mellitus with hyperglycemia Basic Metabolic Panel Fasting Today E11.65 - Type 2 diabetes mellitus with hyperglycemia Microalbumin, Random (w Creat) Today E11.65 - Type 2 diabetes mellitus with hyperglycemia Creatinine Urine Today E11.65 - Type 2 diabetes mellitus with hyperglycemia AMB Hemoglobin A1c Today E11.65 - Type 2 diabetes mellitus with hyperglycemia, Z13.9 - Encounter for screening, unspecified AMB Glucose Monitoring Today E11.65 - Type 2 diabetes mellitus with hyperglycemia Medications: Refilled [diabetic shoes] extra depth orthopedic shoes ( 1 pair ) with customize heat molded multi density inner soles ( 3 pair) Dispense 1 Sig: As directed DX: A nd IDDM /polyneuropathy ( E11 0.42 ); hammertoe foot deformity ( M 20.41, and 20.42 ) pre ulcerative skin lesion ( L 85.1 ) Diagnosis ( E11 0.42 ) type 2 diabetes with polyneuropathy 1 ea 0RF Baqsimi 3 mg/actuation (glucagon) 3 mg intranasal .prn 30 days PRN 2 ea 1RF Unresponsive hypoglycemia MDD 6 mg NS E11.319 - Type 2 diabetes mellitus with unspecified diabetic retinopathy without macular edema acetone (urine) test (Ketone Urine Test strips) P.r.n. glucose over 250, nausea, vomiting or illness t.i.d. p.r.n. 25 ea 1RF E11.40 - Type 2 diabetes mellitus with diabetic neuropathy, unspecified glucose (Dex4 Glucose) every 15 minutes until symptoms of low blood sugar are controlled 16 grams (4 x 4 gram) PO Q15M 30 days PRN 30 tabs 3RF hypoglycemia MDD 16 tablets insulin glargine (Lantus U-100 Insulin) 37 units (0.37 mL) subcut DAILY 30 days PRN 10 mL 3RF pump failure MDD 37 units E11.319 - Type 2 diabetes mellitus with unspecified diabetic retinopathy without macular edema insulin glargine (Lantus U-100 Insulin) 37 units (0.37 mL) subcut DAILY 30 days PRN 10 mL 3RF pump failure MDD 37 units E11.319 - Type 2 diabetes mellitus with unspecified diabetic retinopathy without macular edema [diabetic shoes] extra depth orthopedic shoes ( 1 pair ) with customize heat molded multi density inner soles ( 3 pair) Dispense 1 Sig: As directed DX: And IDDM /polyneuropathy ( E11 0.42 ); hammertoe foot deformity ( M 20.41, and 20.42 ) pre ulcerative skin lesion ( L 85.1 ) Diagnosis ( E11 0.42 ) type 2 diabetes with polyneuropathy 1 ea 0RF [diabetic shoes] extra depth orthopedic shoes ( 1 pair ) with customize heat molded multi density inner soles ( 3 pair) Dispense 1 Sig: As directed DX: And IDDM /polyneuropathy ( E11 0.42 ); hammertoe foot deformity ( M 20.41, and 20.42 ) pre ulcerative skin lesion ( L 85.1 ) Diagnosis ( E11 0.42 ) type 2 diabetes with polyneuropathy 1 ea 0RF Patient Instructions: Take 15 carb carbohydrate grams to treat a low sugar (3-4 glucose tablets, half a glass of juice or 15 carbohydrate grams of soft candy such as gummie snacks). Recheck your sugar in 15 minutes and re-treat again with 15 carbohydrate grams if low or still with symptoms. Do not drive a car or operate machinery if you do not know what your blood sugar is, if it is low or in excess of 300. Would care The patient was counseled to achieve a target A1C of 7% (154 avg). Fasting blood sugars should be 90-130 in the morning and less than 180 two hours after meals. Reviewed the relationship between poor diabetic control and the development of complications. Coding Level of Care Code Est Pt Level 5 (83953) Complex EM visit Add On G2211 Diagnoses Diabetes type 2, uncontrolled E11.65 CPT Codes Details - CPT: 87488 - Glucose monitoring, continuous-physician I&R ([id number]) Time Spent (min) 55 Comment Time spent reviewing labs/provider notes, face to face, chart doc
[2024-04-26 14:31] VITALS: BP 140/46; PULSE 85; O2SAT 97; BMI 28.9
[2024-04-26 14:42] LABS: Glucose, Whole Blood 190 mg/dL (60-115)
--- OUTSIDE RECORDS SUMMARY | 2024-04-26 15:30 | XMS_ITS | Clinical Summary ---
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 Name Role Phone Unavailable Primary Care Provider Unavailabl e Social History Tobacco Use Types Packs/Day Years Used Date Smoking Tobacco: Never Assessed Sex and Gender Information Value Date Recorded Sex Assigned at Not on file Legal Sex Male 8:47 PM EST Gender Identity Not on file Sexual Orientation Not on file Plan of Treatment Health Maintenance Due Date Last Done Comments DTaP,Tdap,and Td Vaccines (1 - Tdap) 09/23/1975 Pneumococcal Vaccine: 50+ Ye ars (1 of 1 - PCV) 2006 Zoster Vaccines (1 of 2) 2006 Abdominal Aortic Aneurysm (A AA) Screen 04/03/2023 Cholesterol Screening (Lipid Panel) 04/03/2023 Colorectal Cancer Screening: Colonoscopy 04/03/2023 Depression Screening 04/03/2023 Falls Risk Assessment 04/03/2023 Hepatitis C Screening 04/03/2023 Social Influencers of Health Screening 04/03/2023 COVID-19 Vaccine ( - 2023-2 5 season) 2023 Influenza Vaccine (#1) 2023 RSV Immunization Patients 60 + Years Old (1 - 1-dose 75+ series) 09/23/2031 HIB Vaccines Aged Out No longer eligi ble based on patient's age to complete this topic HPV Vaccines Aged Out No longer eligi ble based on patient's age to complete this topic Hepatitis A Vaccines Aged Out No long er eligible based on patient's age to complete this topic Hepatitis B Vaccines Aged Out No long er eligible based on patient's age to complete this topic IPV Vaccines Aged Out No longer eligi ble based on patient's age to complete this topic MMR Vaccines Aged Out No longer eligi ble based on patient's age to complete this topic Meningococcal ACWY Vaccine Aged Out N o longer eligible based on patient's age to complete this topic Meningococcal B Vacine Aged Out No lo nger eligible based on patient's age to complete this topic RSV Immunization Patients Un xochilt 20 months Aged Out No longer eligible b ased on patient's age to complete this topic Varicella Vaccines Aged Out No longer eligible based on patient's age to complete this topic
== END 2024-04-26 15:16 | disposition home or self-care (01) ==
PROVIDERS: PCP Family Medicine; Visit Provider Nurse Practitioner Adult Health
DX: E11.65 Type 2 diabetes mellitus with hyperglycemia (principal); Z13.9 Encounter for screening, unspecified
CPT/HCPCS: 95251; 99215; G2211

== ENCOUNTER → 2024-04-26 14:29 | Outpatient (BNVA) | payer SELFPAY | PROVIDERS: PCP Family Medicine; Visit Provider Nurse Practitioner Adult Health | DX: E11.65 Type 2 diabetes mellitus with hyperglycemia (principal); E11.21 Type 2 diabetes mellitus with diabetic nephropathy; E11.319 Type 2 diabetes mellitus with unspecified diabetic retinopathy without macular edema; E11.40 Type 2 diabetes mellitus with diabetic neuropathy, unspecified; Z96.41 Presence of insulin pump (external) (internal) | CPT/HCPCS: 82947; 83036; 99212 ==

== ENCOUNTER 2024-06-30 13:50 | Outpatient (AMB) | payer MEDICARE, MEDICAID, SELFPAY ==
--- NOTE | 2024-06-30 13:57 | A.OFFVIS_ITS ---
Vital Signs 06/30/24 13:58 Height 6 ft Weight 211 lb 10.3 oz BMI 28.7 BP 110/54 L Blood Pressure Location Lt brachial Pulse 88 Pulse Source Pulse Oximeter Pulse Oximetry (%) 98 Oxygen Delivery Method Room Air Intake Visit Reasons: DM Intake Note: Patient presents today for a follow-up on Type 2 Diabetes Mellitus: Last Diabetic eye exam: 06/2023 Last Podiatry Visit: 08/2023 Most Recent HgA1C: 9.0%, 04/26/2024 Random Glucose- 335 mg/dL, Today, patient just had a late lunch. Green Building Energy Engineer Required: No Accompanied by: Self / Same As Patient Allergies No Known Allergies Allergy (Verified 04/26/24 14:36) HPI Comments Details: Patient is a 68-year-old male with DM type 2 diagnosed 25 years ago who presents for management of diabetes. He was last seen 11/25/2023. Hemoglobin A1c 04/26/2024 , % 11/24/2409.3%. PHANI antibodies were negative 06/30. cpeptide 0.69. Past medical history includes : DM2, HTN, HLD, amputations of 2 toes on left foot in 2019. Micro and macrovascular complications: retinopathy, neuropathy Previously was on metformin in the past. Diabetes medications: Novolog via Tandem T-slim pump. Dexcom average glucose: 212 14 day continuous glucose monitor report reviewed Glucose Managment indicator 8.1 % Days with CGM data 96.3 % TIme in ranges: 33 % very high (above 250) 28 % high ?(181-250) 38 % in range ?(70-180] 1.5 % low (69-55) 0 % ?very low (below 54) Interpretation [ patient is not always entering carbs before the meal and his sugars are increasing postprandial and staying up at times for several hours then returning to normal] Basal rate(s) (units/hour) : 12 AM to 6 AM? 1.85 units / hr 6 AM to 10:30 AM? 1.65 units / hr 10:30 AM to 4 PM? 1.65 units / hr r 4 PM to 5 PM? 1.65 units / hr 5 PM to 8 PM? 1.75 units / hr 8 PM to 12 AM 1.850 units / hr Bolus setting Insulin Carbohydrate Ratio (s) 12 am to 4 pm 1:5 new 1:4.5 4 pm to 5pm 1:5.5 new 1:5 5pm to 8PM1:5 new 1:4.5 8pm to 12 am 1:5 new 1:4.5 ? Correction Factor / Sensitivity Factor 12 AM? to 12 AM? 1:20 Active Insulin Time:? 3 hours Target(s): 12 AM? to 12 AM? 110 mg/dL Total daily dose of insulin 110 units basal 33% 37 units bolus 67% 74 units average daily bolus is 17 per day average daily carbs 133 Rare hypoglycemia, treats with half a glass of juice does not have glucose tablets. Neuropathy: + numbness, tingling no pain, cramping in lower extremities, wears dm shoes reports he has had a prior KELSEY. Sees Podiatry on a regular basis last seen 4-6 months ago Has Retinopathy: last eye exam 1 year stable He will schedule f/u + Nephropathy: He is on an Yeison inhibitor. labs done: 06/2023 microalbumin 123, 2021: eGFR >60 HLD 06/30 100 on statin Nutrition: last seen 2022 [facility] Medical History Diabetes type 2, uncontrolled Diabetic neuropathy associated with type 2 diabetes mellitus Diabetic retinopathy associated with type 2 diabetes mellitus Dyslipidemia Hypertension Overweight (BMI 25.0-29.9) Surgical History History of amputation of toe Hx of cholecystectomy Family History Father Diabetes mellitus Mother Diabetes mellitus Social History Household Members: Family Alcohol intake: never Patient Tobacco Use Status: Current everyday Tobacco user Cigarettes Per Day: 4 Years Smoked: 35 Physical Exam Vital Signs: Last Vital Signs Pulse 88 06/30/24 13:58 BP 110/54 L 06/30/24 13:58 Pulse Ox 98 06/30/24 13:58 Oxygen Delivery Method Room Air 06/30/24 13:58 BMI result Body Mass Index 28.7 Const Other: Absence of Cushingoid features. Absence of acromegalic features. Neck exam reveals nl size thyroid about 15 gms. No thyroid nodules palpable. No carotid bruits present. Lungs CTA. Heart S1 S2, Reg R/R. No M/R G. Skin exam reveals absence of vitiligo or acanthosis nigricans. No edema Results Reviewed Results Reviewed: Laboratory Last Values Glucose (Clinic) 335 mg/dL (60-115) H 06/30/24 14:04 Assessment & Plan Assessment & Plan (1) Diabetes type 2, uncontrolled: Code(s): E11.65 - Type 2 diabetes mellitus with hyperglycemia Category: Medical Plan: 68-year-old type 2 diabetic with improving glycemic control that is still not at target. Insulin carb ratio was changed to give more preprandial insulin and he was highly advised to enter all of his carbohydrates. The patient had an opportunity to ask questions regarding treatment plan. The patient expressed understanding and agreement with the above treatment plan. The patient is aware they should contact our office by phone for worsening glucose readings or for any low blood sugars which may warrant a change in diabetes medication. Compliance is encouraged with medications and any followup testing/consults which may have been ordered. Patient Instructions: Take 15 carb carbohydrate grams to treat a low sugar (3-4 glucose tablets, half a glass of juice or 15 carbohydrate grams of soft candy such as gummie snacks). Recheck your sugar in 15 minutes and re-treat again with 15 carbohydrate grams if low or still with symptoms. Do not drive a car or operate machinery if you do not know what your blood sugar is, if it is low or in excess of 300. Symptoms of DKA (diabetic ketoacidosis): early: frequent urination, dry mouth, fatigue, feeling ill, severe symptoms: ketones in the urine, abdominal pain, nausea, vomiting and weakness. It is important to hydrate with sugar free liquids every 15-30 minutes and bring the sugars down to normal levels. If you are moderate or severe with ketones or unable to bring glucose to less than 200, go to the emergency room. Troubleshooting after starting new pod or inserting new insulin set: Occlusion, adhesive tape sensitivity, redness Check BG 2 hours after site change Safety information: Importance of a backup plan, for manual injections, proper prescriptions and emergency supplies ketone strips, and rules for testing for ketones Coding Level of Care Code Est Pt Level 4 (60185) Complex EM visit Add On G2211 Diagnoses Diabetes type 2, uncontrolled E11.65
[2024-06-30 13:58] VITALS: BP 110/54; PULSE 88; O2SAT 98; BMI 28.7
[2024-06-30 14:08] LABS: Glucose, Whole Blood 335 mg/dL (60-115)
--- OUTSIDE RECORDS SUMMARY | 2024-06-30 16:16 | XMS_ITS | Clinical Summary ---
[facility] Organization [facility] Address [address] [place] [address] Care Team Providers Care Manager Account Management Name Role Phone Unavailable Primary Care Provider [...] - 2023-2 5 season) 2023 Influenza Vaccine (Season Ended) 2024 RSV Immunization Adult Patie nts (1 - 1-dose 75+ series) 09/23/2031 HIB [...] age to complete this topic Meningococcal B Vaccine Aged Out No l onger eligible based on patient's age to complete this topic RSV Immunization Patients Un xochilt 20 months Aged Out No longer eligible b ased on patient's age to complete this topic Varicella Vaccines Aged Out No longer eligible based on patient's age to complete this topic
== END 2024-06-30 16:03 | disposition home or self-care (01) ==
LOC: HO.ENCR 13:50
PROVIDERS: PCP Family Medicine; Visit Provider Nurse Practitioner Adult Health
DX: E11.65 Type 2 diabetes mellitus with hyperglycemia (principal)
CPT/HCPCS: 99214; G2211

== ENCOUNTER → 2024-06-30 13:50 | Outpatient (BNVA) | payer MEDICARE, MEDICAID, SELFPAY | PROVIDERS: PCP Family Medicine; Visit Provider Nurse Practitioner Adult Health | DX: Z46.81 Encounter for fitting and adjustment of insulin pump (principal); E11.65 Type 2 diabetes mellitus with hyperglycemia; Z79.4 Long term (current) use of insulin | CPT/HCPCS: 82947; 99212 ==

== ENCOUNTER 2024-08-18 14:30 | Outpatient (AMB) | payer MEDICARE, MEDICAID, SELFPAY ==
[2024-08-18 14:38] VITALS: BP 122/38; PULSE 76; O2SAT 98; BMI 27.8
--- NOTE | 2024-08-18 14:38 | A.OFFVIS_ITS ---
Vital Signs 08/18/24 14:38 08/18/24 14:51 Height 6 ft 6 ft Weight 205 lb 0.478 oz BMI 27.8 BP 122/38 L 150/48 H Blood Pressure Location Rt brachial Lt brachial Position Sitting Sitting Pulse 76 Pulse Source Pulse Oximeter Pulse Oximetry (%) 98 Intake Visit Reasons: DM Intake Note: Patient presents today for a follow-up on Type 2 Diabetes Mellitus, Patient on Tslim Insulin Pump: Last Diabetic eye exam: 06/2023 Last Podiatry Visit: 08/2023 Most Recent HgA1C: 9.4%, 08/18/2024 Random Glucose- 170 mg/dL, Today, Zoology Technical Officer Required: No Accompanied by: Self / Same As Patient Allergies No Known Allergies Allergy (Verified 04/26/24 14:36) HPI Comments Details: Patient is a 68-year-old male with DM type 2 diagnosed 25 years ago who presents for management of diabetes. He was last seen 06/30/24. Hemoglobin A1c 08/18/24 %, 04/26/2024 9% 11/24/2409.3%. PHANI antibodies were negative 06/30. cpeptide 0.69. Past medical history includes : DM2, HTN, HLD, amputations of 2 toes on left foot in 2019. Micro and macrovascular complications: retinopathy, neuropathy Previously was on metformin in the past. Diabetes medications: Novolog via Tandem T-slim pump. Dexcom average glucose: 190 14 day continuous glucose monitor report reviewed Days with CGM data 74 % TIme in ranges: 24 % very high (above 250) 27 % high ?(181-250) 47 % in range ?(70-180] 2 % low (69-55) 0 % ?very low (below 54) Interpretation running 35 points above target with escalations for meals He is entering 206 carbohydrates per day Total daily dose of insulin 83.3 units Basal insulin 40% 33 units Bolus insulin 60% 50 units Backup insulin pump failure plan 37 units of Lantus Basal rate(s) (units/hour) : 12 AM to 6 AM? 1.85 units / hr 6 AM to 10:30 AM? 1.65 units / hr 10:30 AM to 4 PM? 1.65 units / hr 4 PM to 5 PM? 1.65 units / hr 5 PM to 8 PM? 1.75 units / hr 8 PM to 12 AM 1.850 units / hr Bolus setting Insulin Carbohydrate Ratio (s) 12 am to 10:30 am 1:5 10:30 am to 4PM 4.5 4 pm to 5pm 1:5 5pm to 8PM1:4.5 8pm to 12 am 1:4.5 ? Correction Factor / Sensitivity Factor 12 AM? to 12 AM? 1:20 Active Insulin Time:? 3 hours Target(s): 12 AM? to 12 AM? 110 mg/dL Total daily dose of insulin 110 units basal 33% 37 units bolus 67% 74 units average daily bolus is 17 per day average daily carbs 133 Rare hypoglycemia, treats with half a glass of juice does not have glucose tablets. Neuropathy: + numbness, tingling no pain, cramping in lower extremities, wears dm shoes reports he has had a prior KELSEY. Sees Podiatry on a regular basis Has Retinopathy: last eye exam 06/2023 stable He will schedule f/u + Nephropathy: He is on an Yeison inhibitor. labs done: 06/2023 microalbumin 123, 2021: eGFR >60 HLD 06/30 100 on statin Nutrition: last seen 2022 [facility] Medical History Diabetes type 2, uncontrolled Diabetic neuropathy associated with type 2 diabetes mellitus Diabetic retinopathy associated with type 2 diabetes mellitus Dyslipidemia Hypertension Overweight (BMI 25.0-29.9) Surgical History History of amputation of toe Hx of cholecystectomy Family History Father Diabetes mellitus Mother Diabetes mellitus Social History Household Members: Family Alcohol intake: never Patient Tobacco Use Status: Current everyday Tobacco user Cigarettes Per Day: 4 Years Smoked: 35 Physical Exam Vital Signs: Last Vital Signs Pulse 76 08/18/24 14:38 BP 122/38 L 08/18/24 14:38 Pulse Ox 98 08/18/24 14:38 BMI result Body Mass Index 27.8 Results AMB Hemoglobin A1c AMB Hemoglobin A1c 9.4 % Last Edit by NALLELY Blanton on 08/18/24 14:55 Results Reviewed Results Reviewed: Laboratory Last Values Glucose (Clinic) 170 mg/dL (60-115) H 08/18/24 14:43 Assessment & Plan Assessment & Plan Orders: Orders AMB Hemoglobin A1c Today E11.65 - Type 2 diabetes mellitus with hyperglycemia Coding
[2024-08-18 14:47] LABS: Glucose, Whole Blood 170 mg/dL (60-115)
[2024-08-18 14:51] VITALS: BP 150/48
--- OUTSIDE RECORDS SUMMARY | 2024-08-18 17:04 | XMS_ITS | Clinical Summary ---
[facility] Address [address] [place] [address] Care Team Providers Care Box Maker Name Role Phone Unavailable Primary Care Provider [...]
== END 2024-08-18 15:16 | disposition home or self-care (01) ==
LOC: HO.ENCR 14:31
PROVIDERS: PCP Family Medicine; Visit Provider Nurse Practitioner Adult Health
DX: E11.65 Type 2 diabetes mellitus with hyperglycemia (principal)

== ENCOUNTER → 2024-08-18 14:30 | Outpatient (BNVA) | payer MEDICARE, MEDICAID, SELFPAY | PROVIDERS: PCP Family Medicine; Visit Provider Nurse Practitioner Adult Health | DX: Z46.81 Encounter for fitting and adjustment of insulin pump (principal); E11.65 Type 2 diabetes mellitus with hyperglycemia; E11.51 Type 2 diabetes mellitus with diabetic peripheral angiopathy without gangrene; Z79.4 Long term (current) use of insulin | CPT/HCPCS: 82947; 83036; 99212 ==

== ENCOUNTER 2024-10-18 14:53 | Outpatient (AMB) | payer MEDICARE, MEDICAID, SELFPAY ==
[2024-10-18 14:55] VITALS: BP 140/50; PULSE 79; O2SAT 99; BMI 28.6
--- NOTE | 2024-10-18 14:55 | A.OFFVIS_ITS ---
Vital Signs 3 10/18/24 14:55 Height 6 ft Weight 211 lb 3.245 oz BMI 28.6 BP 140/50 H Blood Pressure Location Lt brachial Position Sitting Pulse 79 Pulse Source Pulse Oximeter Pulse Oximetry (%) 99 Oxygen Delivery Method Room Air Intake Visit Reasons: T2DM Intake Note: Patient present today for Type 2 Diabetes Mellitus Last Diabetic eye exam: 10/2023 and has upcoming appt next month Last Podiatry Visit: 04/2024 Random Glucose: 323 mg/dl HgA1C: 9.4% 08/18/24 Women'S Apparel Salesperson Required: No Accompanied by: Self / Same As Patient Allergies No Known Allergies Allergy (Verified 10/18/24 15:00) Medication List - Last Reconciled 10/18/24 by Kimi Kirby MD acetone (urine) test (Ketone Urine Test strips) P.r.n. glucose over 250, nausea, vomiting or illness t.i.d. p.r.n. ammonium lactate 12% 1 appl topical BID 30 days aspirin (Adult Aspirin Regimen) 81 mg PO DAILY Baqsimi 3 mg/actuation (glucagon) 3 mg intranasal .prn PRN 30 days MDD 6 mg NS blood sugar diagnostic (FreeStyle Lite Strips) As directed 3 times a day blood-glucose meter (FreeStyle Lite Meter kit) As directed blood-glucose sensor (Dexcom G6 Sensor device) As directed blood-glucose transmitter (Dexcom G4 Transmitter device) As directed clopidogrel (Plavix) 75 mg PO DAILY [diabetic shoes extra depth orthopedic shoes ( 1 pair ) with customize heat molded multi density inner soles ( 3 pair) Dispense 1 Sig: As directed DX: And IDDM /polyneuropathy ( E11 0.42 ); hammertoe foot deformity ( M 20.41, and 20.42 ) pre ulcerative skin lesion ( L 85.1 ) Diagnosis ( E11 0.42 ) type 2 diabetes with polyneuropathy] [diabetic shoes extra depth orthopedic shoes ( 1 pair ) with customize heat molded multi density inner soles ( 3 pair) Dispense 1 Sig: As directed DX: And IDDM /polyneuropathy ( E11 0.42 ); hammertoe foot deformity ( M 20.41, and 20.42 ) pre ulcerative skin lesion ( L 85.1 ) Diagnosis ( E11 0.42 ) type 2 diabetes with polyneuropathy] [Diabetic shoes & 3 pair inserts as directed] dolutegravir-rilpivirine 50-25 mg (Juluca) 1 tab PO DAILY glucose (Dex4 Glucose) 16 grams (4 x 4 gram) PO Q15M PRN 30 days MDD 16 tablets insulin aspart U-100 (Novolog U-100 Insulin aspart) up to 100 units via pump subcut daily; insulin glargine (Lantus U-100 Insulin) 37 units (0.37 mL) subcut DAILY PRN 30 days MDD 37 units insulin syringe-needle U-100 (BD Insulin Syringe Ultra-Fine) As directed prn pump failure or need for insulin injection up to qid prn lancets (FreeStyle Lancets) As directed lisinopril 30 mg PO DAILY rosuvastatin 40 mg PO DAILY tirzepatide (Vern) 2.5 mg (0.5 mL) subcut QWEEK 4 weeks HPI Comments Details: 69-year-old male here today for follow up of type 2 diabetes mellitus with complications of neuropathy with past amputations, peripheral artery disease, retinopathy, nephropathy. History of type 2 diabetes mellitus diagnosed sometime around 1994. He was last seen August 2024 but Alexandra Frank APRN PHANI antibodies were negative 06/30. cpeptide 0.69. Prior therapy: Previously was on metformin in the past. See an active presctiption for AURY polo done December 2023, sadie got approved?? he never got it . Hemoglobin A1c 08/18/24 9.4%, 04/26/2024 9% 11/24/2409.3%. He updated to Dexcom G7, and since then for the past 5-6 weeks his pump has not been pared with CGM, he is entering data manually Past medical history includes : DM2, HTN, HLD, amputations of 2 toes on left foot in 2019. Micro and macrovascular complications: retinopathy, neuropathy Diabetes medications: Novolog via Tandem T-slim pump. Tandem T slim pump with Dexcom, using NovoLog He updated to Dexcom G7, and since then for the past 5-6 weeks his pump has not been pared with CGM, he is entering data manually Tandem T slim pump data downloaded from September 2037 to 10/18/2024. Average blood glucose 240 mg/dL Within target range 21% High 79% Low 0% Control IQ active 0% CGM inactive 93% Insulin usage Total insulin 102.68 units Basal per day: 39.07 units, 38% bolus per day: 63.6 units, 62%, Backup insulin pump failure plan 37 units of Lantus Basal rate(s) (units/hour) : 12 AM to 6 AM? 1.85 units / hr 6 AM to 10:30 AM? 1.65 units / hr 10:30 AM to 4 PM? 1.65 units / hr 4 PM to 5 PM? 1.65 units / hr 5 PM to 8 PM? 1.75 units / hr 8 PM to 12 AM 1.850 units / hr Bolus setting Insulin Carbohydrate Ratio (s) 12 am to 06:00 1:4 06:00 to 10:30 10:30 am 1:4 10:30 am to 4PM 1:. 4 4 pm to 5pm 1: 4 5pm to 8PM 1: 4 8pm to 12 am 1:4 ? Correction Factor / Sensitivity Factor 12 AM? to 12 AM? 1:20 Active Insulin Time:? 3 hours Target(s): 12 AM? to 12 AM? 115 mg/dL CDE: Last seen in 2022, has been missing appointments with CDE multiple times since this year Rare hypoglycemia, treats with half a glass of juice does not have glucose tablets. Neuropathy: + numbness, tingling no pain, cramping in lower extremities, wears dm shoes Sees vascular and has had stents Sees Podiatry on a regular basis Has Retinopathy: last eye exam 06/2023 stable He will schedule f/u + Nephropathy: He is on an Yeison inhibitor. labs done: 06/2023 microalbumin 123, 2021: eGFR >60 HLD 06/30 LDL 100 mg/dL on statin Nutrition: last seen 2022 On insulin pump Has backup Lantus and pen needles: To inject 37 units of Lantus in case of pump failure Has nasal Baqsimi has Urine ketone strips Physical exam General: sitting comfortably in no acute distress HEENT: normocephalic/atraumatic, Neck: supple, Cardiac: normal heart sounds Pulm: normal breath sounds B/L, no added breath sounds Abd: not distended, no tenderness Foot exam: deferred today Laboratory Tests 05/02/22 06/30/2306/29/24 09:04 08:06 08:07 Glucose (Clinic) Hgb A1c (Clinic) C-Peptide 0.69 L Triglycerides 114 Cholesterol 155 LDL Cholesterol, Calc 100 H HDL Cholesterol 33 L Urine Creatinine 152.14 Urine Microalbumin 123.0 Microalb/Creat Ratio 80.8 H PHANI Antibody <5 11/25/23 04/26/24 06/30/24 07:55 14:48 14:04 Glucose (Clinic) 335 H Hgb A1c (Clinic) 10.3 H 9.0 H C-Peptide Triglycerides Cholesterol LDL Cholesterol, Calc HDL Cholesterol Urine Creatinine Urine Microalbumin Microalb/Creat Ratio PHANI Antibody 08/18/24 08/18/24 14:43 14:54 Glucose (Clinic) 170 H Hgb A1c (Clinic) 9.4 H C-Peptide Triglycerides Cholesterol LDL Cholesterol, Calc HDL Cholesterol Urine Creatinine Urine Microalbumin Microalb/Creat Ratio PHANI Antibody [facility] Medical History (Updated 10/18/24 @ 15:50 by Kimi Kirby MD) Insulin pump in place Peripheral vascular disease Overweight (BMI 25.0-29.9) Hypertension Dyslipidemia Diabetic retinopathy associated with type 2 diabetes mellitus Diabetic neuropathy associated with type 2 diabetes mellitus Diabetes type 2, uncontrolled Surgical History History of amputation of toe Hx of cholecystectomy Family History Father Diabetes mellitus Mother Diabetes mellitus Social History Household Members: Family Alcohol intake: never Patient Tobacco Use Status: Current everyday Tobacco user Cigarettes Per Day: 4 Years Smoked: 35 Assessment & Plan Assessment & Plan (1) Diabetes type 2, uncontrolled: Code(s): E11.65 - Type 2 diabetes mellitus with hyperglycemia Category: Medical Qualifiers: Glycemic state: with hyperglycemia Qualified Code(s): E11.65 - Type 2 diabetes mellitus with hyperglycemia Plan: 69-year-old male with the insulin dependent type 2 diabetes mellitus with peripheral vascular disease, neuropathy and retinopathy on an insulin pump with poor control. He also updated to Lumoid G7 for his sensor in the past 5-6 weeks and he has been out of control IQ on his tandem T slim insulin pump, uses NovoLog, he has been entering data manually. He missed several appointments with the educator. I will have him see the educator as soon as possible for pairing up the sensor to the pump. Based on his total daily dose, I have tighten his sensitivity today. Also during the early daytime his carb ratios are not cutting it so I increase that a bit too. New pump settings in bold Basal rate(s) (units/hour) : 12 AM to 6 AM? 1.85 units / hr 6 AM to 10:30 AM? 1.65 units / hr 10:30 AM to 4 PM? 1.65 units / hr 4 PM to 5 PM? 1.65 units / hr 5 PM to 8 PM? 1.75 units / hr 8 PM to 12 AM 1.850 units / hr Bolus setting Insulin Carbohydrate Ratio (s) 12 am to 06:00 1:4 06:00 to 10:30 10:30 am 1:4 10:30 am to 4PM 1:from 4 to 3.5 4 pm to 5pm 1: 4 5pm to 8PM 1: 4 8pm to 12 am 1:4 12 AM to 6 AM? 20 6 AM to 10:30 AM? 20 10:30 AM to 4 PM? 18 from 20 4 PM to 5 PM? 18 from 20 5 PM to 8 PM? 18 from 20 8 PM to 12 AM 20 Do labs prior to next visit The patient had an opportunity to ask questions regarding treatment plan. The patient expressed understanding and agreement with the above treatment plan. The patient is aware they should contact our office by phone for worsening glucose readings or for any low blood sugars which may warrant a change in diabetes medication. Compliance is encouraged with medications and any followup testing/consults which may have been ordered. (2) Peripheral vascular disease: Code(s): I73.9 - Peripheral vascular disease, unspecified Category: Medical Plan: Followed by vascular. Has had stents. Patient was advised to: Check your feet daily looking for any signs of infection, drainage, redness, ulceration and seek medical attention if this occurs. Break in shoes gradually and do not wear open-toed shoes or walk stocking footed or barefooted. (3) Insulin pump in place: Code(s): Z96.41 - Presence of insulin pump (external) (internal) Category: Medical Plan: On insulin pump Has backup Lantus and pen needles: To inject 37 units of Lantus in case of pump failure Has nasal Baqsimi has Urine ketone strips Plan I spent 30 minutes in reviewing the record, seeing the patient and documenting in the medical record. Orders: Orders 2 Lipid Panel Today E11.65 - Type 2 diabetes mellitus with hyperglycemia, E78.5 - Hyperlipidemia, unspecified, I73.9 - Peripheral vascular disease, unspecified, Z96.41 - Presence of insulin pump (external) (internal) Microalbumin, Random (w Creat) Today E11.65 - Type 2 diabetes mellitus with hyperglycemia, E78.5 - Hyperlipidemia, unspecified, I73.9 - Peripheral vascular disease, unspecified, Z96.41 - Presence of insulin pump (external) (internal) Comprehensive Met. Panel Today E11.65 - Type 2 diabetes mellitus with hyperglycemia, E78.5 - Hyperlipidemia, unspecified, I73.9 - Peripheral vascular disease, unspecified, Z96.41 - Presence of insulin pump (external) (internal) Complete Blood Count no Diff Today E11.65 - Type 2 diabetes mellitus with hyperglycemia, E78.5 - Hyperlipidemia, unspecified, I73.9 - Peripheral vascular disease, unspecified, Z96.41 - Presence of insulin pump (external) (internal) Medications: Refilled 2 insulin aspart U-100 (Novolog U-100 Insulin aspart) up to 100 units via pump subcut daily; 40 mL 6RF E11.40 - Type 2 diabetes mellitus with diabetic neuropathy, unspecified, Z96.41 - Presence of insulin pump (external) (internal) Coding Level of Care Code Est Pt Level 4 (77249) Complex EM visit Add On G2211 Diagnoses Uncontrolled type 2 diabetes mellitus with hyperglycemia E11.65 Glycemic state: with hyperglycemia Peripheral vascular disease I73.[address] Z96.41 Time Spent (min) 30
[2024-10-18 15:07] LABS: Glucose, Whole Blood 323 mg/dL (60-115)
--- OUTSIDE RECORDS SUMMARY | 2024-10-18 15:45 | XMS_ITS | Clinical Summary ---
[facility] Organization [facility] Address [address] [place] [address] Care Team Providers Care Mechanical Equipment Test Engineer Name Role Phone Unavailable Primary Care Provider [...] Panel) 04/03/2023 Colorectal Cancer Screening: Colonoscopy 04/03/2023 Falls Risk Assessment 04/03/2023 Hepatitis C Screening 04/03/2023 Social Influencers of Health Screening 04/03/2023 COVID-19 Vaccine (1 - 2023-2 5 season) 2023 Depression Screening 03/09/2024 Influenza Vaccine (#1) 2024 RSV Immunization Adult Patie nts (1 [...]
== END 2024-10-18 15:42 | disposition home or self-care (01) ==
LOC: HO.ENCR 14:54
PROVIDERS: PCP Family Medicine; Visit Provider Student in an Organized Health Care Education/Training Program
DX: E11.65 Type 2 diabetes mellitus with hyperglycemia (principal); I73.9 Peripheral vascular disease, unspecified; Z96.41 Presence of insulin pump (external) (internal)
CPT/HCPCS: 99214; G2211

== ENCOUNTER → 2024-10-18 14:53 | Outpatient (BNVA) | payer MEDICARE, MEDICAID, SELFPAY | PROVIDERS: PCP Family Medicine; Visit Provider Student in an Organized Health Care Education/Training Program | DX: E11.65 Type 2 diabetes mellitus with hyperglycemia (principal); E11.42 Type 2 diabetes mellitus with diabetic polyneuropathy; E11.51 Type 2 diabetes mellitus with diabetic peripheral angiopathy without gangrene; E11.319 Type 2 diabetes mellitus with unspecified diabetic retinopathy without macular edema; Z96.41 Presence of insulin pump (external) (internal) | CPT/HCPCS: 82947; 99212 ==

== ENCOUNTER 2024-10-25 15:45 | Outpatient (AMB) | payer MEDICARE, MEDICAID, SELFPAY ==
--- NOTE | 2024-10-25 16:00 | A.OFFVIS_ITS ---
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 Accompanied by: Self / Same As Patient Allergies No Known Allergies Allergy (Verified 10/18/24 15:00) [facility] Medical History (Updated 10/18/24 @ 15:50 by Kimi Kirby MD) Insulin pump in place Peripheral vascular disease Overweight (BMI 25.0-29.9) Hypertension Dyslipidemia Diabetic retinopathy associated with type 2 diabetes mellitus Diabetic neuropathy associated with type 2 diabetes mellitus Diabetes type 2, uncontrolled Surgical History History of amputation of toe Hx of cholecystectomy Family History Father Diabetes mellitus Mother Diabetes mellitus Social History Household Members: Family Alcohol intake: never Patient Tobacco Use Status: Current everyday Tobacco user Cigarettes Per Day: 4 Years Smoked: 35 Assessment & Plan Assessment & Plan (1) Diabetes type 2, uncontrolled: Code(s): E11.65 - Type 2 diabetes mellitus with hyperglycemia Qualifiers: Glycemic state: with hyperglycemia Qualified Code(s): E11.65 - Type 2 diabetes mellitus with hyperglycemia Plan: Patient needed assistance in updating e-mail address to [employer] account. Contacted [employer] service Patient has switched e-mail address in [employer] account Patient was able to access insulin pump update software Patient will complete tutorial at home an update pump Patient will contact Diabetes Education nurse with questions or concerns Coding Level of Care Code Est Pt Level 1 (63088) Diagnoses Uncontrolled type 2 diabetes mellitus with hyperglycemia E11.65 Glycemic state: with hyperglycemia
--- OUTSIDE RECORDS SUMMARY | 2024-10-25 17:07 | XMS_ITS | Clinical Summary ---
[facility] [address] [place] [address] Care Team Providers Care Electronics Specialist Name Role Phone Unavailable Primary Care Provider [...]
== END 2024-10-25 16:28 | disposition home or self-care (01) ==
LOC: HO.ENCR 15:46
PROVIDERS: PCP Family Medicine; Visit Provider Registered Nurse Diabetes Educator
DX: E11.65 Type 2 diabetes mellitus with hyperglycemia (principal)

== ENCOUNTER → 2024-10-25 15:45 | Outpatient (BNVA) | payer MEDICARE, MEDICAID, SELFPAY | PROVIDERS: PCP Family Medicine; Visit Provider Registered Nurse Diabetes Educator | DX: Z46.81 Encounter for fitting and adjustment of insulin pump (principal); E11.65 Type 2 diabetes mellitus with hyperglycemia; Z96.41 Presence of insulin pump (external) (internal) | CPT/HCPCS: 99211 ==

== ENCOUNTER 2024-12-27 10:56 | Outpatient (REF) | payer MEDICARE, SELFPAY ==
[2024-12-27 12:31] LABS: Hematocrit 40.1 % (42.0-52.0); Hemoglobin 13.7 g/dl (14.0-18.0); Mean Corpuscular HGB Conc 34.2 g/dl (31.0-36.0); Mean Corpuscular Hemoglobin 30.9 pg (27.0-33.0); Mean Corpuscular Volume 90.3 fL (80.0-98.0); NRBC Abs Auto 0.000 X10*3/uL (0.0-0.012); NRBC Pct Auto 0.0 /100WBC (0.0-0.2); Platelet Count 188 X10*3/uL (160-400); Red Blood Count 4.44 X10*6/uL (4.60-5.80); White Blood Count 7.3 X10*3/uL (4.8-10.8)
[2024-12-27 12:51] LABS: Alanine Aminotransferase 21 U/L (0-40); Albumin Level 4.3 g/dL (3.5-5.0); Anion Gap 13 (12-20); Aspartate Amino Transferase 25 U/L (5-37); Blood Urea Nitrogen 14 mg/dL (9-16); Calcium 8.9 mg/dL (8.4-10.2); Carbon Dioxide 24 mmol/L (22-29); Chloride 107 mmol/L (96-108); Cholesterol 151 mg/dL (<200); Estimated Glomerular Filt Rate > 60; HDL Cholesterol 34 mg/dL (>40); Potassium 4.1 mmol/L (3.3-5.1); Sodium 140 mmol/L (135-145); Total Protein 7.0 g/dL (6.5-8.0); Triglycerides 113 mg/dL (<150)
[2024-12-27 13:01] LABS: Alkaline Phosphatase 72 U/L (39-117)
== END 2024-12-27 10:57 | disposition home or self-care (01) ==
LOC: HO.LAB 10:56
PROVIDERS: PCP Family Medicine; Visit Provider Student in an Organized Health Care Education/Training Program
DX: I73.9 Peripheral vascular disease, unspecified (principal); E78.5 Hyperlipidemia, unspecified; E11.65 Type 2 diabetes mellitus with hyperglycemia; Z96.41 Presence of insulin pump (external) (internal)
CPT/HCPCS: 36415; 80053; 80061; 85027

== ENCOUNTER 2025-02-15 14:45 | Outpatient (AMB) | payer MEDICARE, SELFPAY ==
--- NOTE | 2025-02-15 14:50 | MHC.OFFVIS ---
Vital Signs 02/15/25 14:51 Height 6 ft Weight 211 lb 10.3 oz BMI 28.7 BP 156/72 H Blood Pressure Location Lt brachial Position Sitting Pulse 82 Pulse Source Pulse Oximeter Pulse Oximetry (%) 97 Oxygen Delivery Method Room Air Intake Visit Reasons: [id number] insulin pump Intake Note: Patient presents today for a follow-up on Type 2 Diabetes Mellitus Tslim Insulin Pump: Patient last seen by DR Kimi Kirby MD. 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 glucose over 250, nausea, vomiting or illness t.i.d. p.r.n. ammonium lactate 12% 1 appl topical BID 30 days aspirin (Adult Aspirin Regimen) 81 mg PO DAILY Baqsimi 3 mg/actuation (glucagon) 3 mg intranasal .prn PRN 30 days MDD 6 mg NS blood sugar diagnostic (FreeStyle Lite Strips) As directed 3 times a day blood-glucose meter (FreeStyle Lite Meter kit) As directed blood-glucose sensor (Dexcom G6 Sensor device) As directed blood-glucose transmitter (Dexcom G4 Transmitter device) As directed clopidogrel (Plavix) 75 mg PO DAILY [diabetic shoes extra depth orthopedic shoes ( 1 pair ) with customize heat molded multi density inner soles ( 3 pair) Dispense 1 Sig: As directed DX: And IDDM /polyneuropathy ( E11 0.42 ); hammertoe foot deformity ( M 20.41, and 20.42 ) pre ulcerative skin lesion ( L 85.1 ) Diagnosis ( E11 0.42 ) type 2 diabetes with polyneuropathy] [diabetic shoes extra depth orthopedic shoes ( 1 pair ) with customize heat molded multi density inner soles ( 3 pair) Dispense 1 Sig: As directed DX: And IDDM /polyneuropathy ( E11 0.42 ); hammertoe foot deformity ( M 20.41, and 20.42 ) pre ulcerative skin lesion ( L 85.1 ) Diagnosis ( E11 0.42 ) type 2 diabetes with polyneuropathy] [Diabetic shoes & 3 pair inserts as directed] dolutegravir-rilpivirine 50-25 mg (Juluca) 1 tab PO DAILY empagliflozin (Jardiance) 25 mg PO DAILY ezetimibe-rosuvastatin 10-40 mg 1 tab PO DAILY glucose (Dex4 Glucose) 16 grams (4 x 4 gram) PO Q15M PRN 30 days MDD 16 tablets insulin aspart U-100 (Novolog U-100 Insulin aspart) up to 100 units via pump subcut daily; insulin glargine (Lantus U-100 Insulin) 37 units (0.37 mL) subcut DAILY PRN 30 days MDD 37 units insulin syringe-needle U-100 (BD Insulin Syringe Ultra-Fine) As directed prn pump failure or need for insulin injection up to qid prn lancets (FreeStyle Lancets) As directed lisinopril 30 mg PO DAILY tirzepatide (Vern) 2.5 mg (0.5 mL) subcut QWEEK 4 weeks HPI Comments Details: 69-year-old male here today for follow up of type 2 diabetes mellitus with complications of neuropathy with past amputations, peripheral artery disease, retinopathy, nephropathy. History of type 2 diabetes mellitus diagnosed sometime around 1994. He was last seen August 2024 but Alexandra Frank APRN PHANI antibodies were negative 06/30. cpeptide 0.69. Prior therapy: Previously was on metformin in the past. See an active presctiption for AURY polo done December 2023, sadie got approved?? he never got it . Hemoglobin A1c 02/15/25 7.8% 08/18/24 9.4%, 04/26/2024 9% 11/24/2409.3%. He updated to Dexcom G7, and since then for the past 5-6 weeks his pump has not been pared with CGM, he is entering data manually Past medical history inludes : DM2, HTN, HLD, amputations of 2 toes on left foot in 2019. Micro and macrovascular complications: retinopathy, neuropathy Diabetes medications: Novolog via Tandem T-slim pump. Tandem T slim pump with Dexcom, using NovoLog CGM data Interpretation: Improvement in glucemic control. He continues to have some degree of hyperglycemia due to meal constents and snacking Insulin usage Average daily dose 102.11 units Basal 42.72 units-42% Bolus 59 0.39 units-58% Average daily boluses 9 Average daily carbs 166 Backup insulin pump failure plan 37 units of Lantus New pump settings from 10/18/2024 12 AM to 6 AM 1.85 units / hr 6 AM to 10:30 AM 1.65 units / hr 10:30 AM to 4 PM 1.65 units / hr 4 PM to 5 PM 1.65 units / hr 5 PM to 8 PM 1.75 units / hr 8 PM to 12 AM 1.850 units / hr Bolus setting Insulin Carbohydrate Ratio (s) 12 am to 06:00 1:4 06:00 to 10:30 10:30 am 1:4 10:30 am to 4PM 1:3.5 4 pm to 5pm 1:4 5pm to 8PM 1:4 8pm to 12 am 1:4 12 AM to 6 AM 20 6 AM to 10:30 AM 20 10:30 AM to 4 PM 18 4 PM to 5 PM 18 5 PM to 8 PM 18 8 PM to 12 AM 20 CDE: Last seen in 2022, has been missing appointments with CDE multiple times since this year Rare hypoglycemia, treats with half a glass of juice does not have glucose tablets. Neuropathy: + numbness, tingling no pain, cramping in lower extremities, wears dm shoes Sees vascular and has had stents Sees Podiatry on a regular basis Has Retinopathy: last eye exam 06/2023 stable He will schedule f/u + Nephropathy: He is on an Yeison inhibitor. labs done: 06/2023 microalbumin 123, 2021: eGFR >60 HLD 06/30 LDL 100 mg/dL on statin Nutrition: last seen 2022 Interval history He reports that he has not wearing his sensor 3 days ago as he going through hyperbaric therapy for right toe ulcer He reports that he most of the times, he gives himself insulin 5 mins prior to meals, although the pump review shows that multiple times, he insulin was already rising before he gave himself insulin. He also reports that he sometimes needs to give himself more than 25 units bolus, but he is unable to give himself more as pump does not allow him He has not started taking Mounjaro, as he was afraid for hypoglycemia. He reports snacking in between meals, not always give himself coverage, as sometimes he eats sugar free snacks. He ocassionally is awake at night for work and he eats He reports stable weight. He has Physical exam Laboratory Tests 06/30/23 12/27/24 08:06 11:29 BUN 14 Creatinine 0.89 Estimated GFR > 60 Triglycerides 113 Cholesterol 151 LDL Cholesterol, Calc 95 HDL Cholesterol 34 L Microalb/Creat Ratio 80.8 H Laboratory Tests 05/02/22 06/30/23 06/30/23 09:04 08:06 08:07 Glucose (Clinic) Hgb A1c (Clinic) C-Peptide 0.69 L Triglycerides 114 Cholesterol 155 LDL Cholesterol, Calc 100 H HDL Cholesterol 33 L Urine Creatinine 152.14 Urine Microalbumin 123.0 Microalb/Creat Ratio 80.8 H PHANI Antibody <5 11/25/23 04/26/24 06/30/24 07:55 14:48 14:04 Glucose (Clinic) 335 H Hgb A1c (Clinic) 10.3 H 9.0 H C-Peptide Triglycerides Cholesterol LDL Cholesterol, Calc HDL Cholesterol Urine Creatinine Urine Microalbumin Microalb/Creat Ratio PHANI Antibody 08/18/24 08/18/24 14:43 14:54 Glucose (Clinic) 170 H Hgb A1c (Clinic) 9.4 H C-Peptide Triglycerides Cholesterol LDL Cholesterol, Calc HDL Cholesterol Urine Creatinine Urine Microalbumin Microalb/Creat Ratio PHANI Antibody COUNTS INCLUDE 234 BEDS AT THE [facility] Medical History (Updated 10/18/24 @ 15:50 by Kimi Kirby MD) Insulin pump in place Peripheral vascular disease Overweight (BMI 25.0-29.9) Hypertension Dyslipidemia Diabetic retinopathy associated with type 2 diabetes mellitus Diabetic neuropathy associated with type 2 diabetes mellitus Diabetes type 2, uncontrolled Surgical History History of amputation of toe Hx of cholecystectomy Family History Father Diabetes mellitus Mother Diabetes mellitus Social History Household Members: Family Alcohol intake: never Patient Tobacco Use Status: Current everyday Tobacco user Cigarettes Per Day: 4 Years Smoked: 35 Physical Exam Vital Signs: Last Vital Signs Pulse 82 02/15/25 14:51 BP 156/72 H 02/15/25 14:51 Pulse Ox 97 02/15/25 14:51 Oxygen Delivery Method Room Air 02/15/25 14:51 BMI result Body Mass Index 28.7 Office Procedures Glucose Monitoring Details Details: See HPI 44940 - Continuous Glucose Monitoring, patient provides equipment Procedure code (CPT) selection complete Results AMB Hemoglobin A1c AMB Hemoglobin A1c 7.8 % Last Edit by NALLELY Gayle on 02/15/25 15:10 Results Reviewed Results Reviewed: Laboratory Last Values Glucose (Clinic) 236 mg/dL (60-115) H 02/15/25 14:58 Assessment & Plan Assessment & Plan (1) Diabetes type 2, uncontrolled: Code(s): E11.65 - Type 2 diabetes mellitus with hyperglycemia Category: Medical Qualifiers: Glycemic state: with hyperglycemia Qualified Code(s): E11.65 - Type 2 diabetes mellitus with hyperglycemia Plan: 69-year-old male with the insulin dependent type 2 diabetes mellitus with peripheral vascular disease, neuropathy and retinopathy on an insulin pump with poor control. He also updated to ShipHawk7 for his sensor in the past 5-6 weeks and he has been out of control IQ on his tandem T slim insulin pump, uses NovoLog, he has been entering data manually. He missed several appointments with the educator. I will have him see the educator as soon as possible for pairing up the sensor to the pump. Based on his total daily dose, I have tighten his sensitivity today. Also during the early daytime his carb ratios are not cutting it so I increase that a bit too. Most recent A1c 7.8%, compared to 9.4% in August 2024 He has very variable response to insulin, which seems to be based on his meal composition rather than needing changes in this pump settins. He will also start taking Mounjaro, which would curb his appetite and decrease his insulin requirement. He is made aware that hypoglycemia is possible, specially after he starts on the treatment dose 5mg or above. His cholesterol is above goal < 70, which is currently 95. We will add Ezetimibe 10mg to his treatment. In terms of nephropathy, he continues to have microalbuminuria despite Lisinopril 10 mg. He agreed to start Jardiance 25 mg. We will repeat Lipid panel and microalbminuria in 8 weeks to evaluate response Follow in 3 months (2) Peripheral vascular disease: Code(s): I73.9 - Peripheral vascular disease, unspecified Category: Medical Plan: Followed by vascular. Has had stents. Patient was advised to: Check your feet daily looking for any signs of infection, drainage, redness, ulceration and seek medical attention if this occurs. Break in shoes gradually and do not wear open-toed shoes or walk stocking footed or barefooted. (3) Insulin pump in place: Code(s): Z96.41 - Presence of insulin pump (external) (internal) Category: Medical Plan: On insulin pump Has backup Lantus and pen needles: To inject 37 units of Lantus in case of pump failure Has nasal Baqsimi has Urine ketone strips Plan I spent 30 minutes in reviewing the record, seeing the patient and documenting in the medical record. Orders: Orders AMB Hemoglobin A1c Today E11.65 - Type 2 diabetes mellitus with hyperglycemia, Z13.9 - Encounter for screening, unspecified AMB Glucose Monitoring Today E11.65 - Type 2 diabetes mellitus with hyperglycemia, Z96.41 - Presence of insulin pump (external) (internal) Medications: New blood sugar diagnostic (FreeStyle Lite Strips) As directed 3 times a day 100 ea 3RF lancets (FreeStyle Lancets) As directed 100 ea 3RF empagliflozin (Jardiance) 25 mg PO DAILY 30 tabs 4RF ezetimibe-rosuvastatin 10-40 mg 1 tab PO DAILY 30 tabs 3RF Refilled insulin aspart U-100 (Novolog U-100 Insulin aspart) up to 100 units via pump subcut daily; 40 mL 6RF E11.40 - Type 2 diabetes mellitus with diabetic neuropathy, unspecified, Z96.41 - Presence of insulin pump (external) (internal) Discontinued rosuvastatin Discontinued Reason: Doctor's Order 40 mg PO DAILY 30 tabs 4RF E78.5 - Hyperlipidemia, unspecified Coding Level of Care Code Est Pt Level 4 (03286) Diagnoses Uncontrolled type 2 diabetes mellitus with hyperglycemia E11.65 Glycemic state: with hyperglycemia Peripheral vascular disease I73.[address] Z96.41 CPT Codes Details - CPT: 14863 - Continuous Glucose Monitoring, patient provides equipment ([id number])
[2025-02-15 14:51] VITALS: BP 156/72; PULSE 82; O2SAT 97; BMI 28.7
[2025-02-15 15:03] LABS: Glucose, Whole Blood 236 mg/dL (60-115)
--- OUTSIDE RECORDS SUMMARY | 2025-02-15 23:06 | XMS_ITS | Clinical Summary ---
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 Name Role Phone Unavailable Primary Care Provider Unavailabl e Social History Tobacco Use Types Packs/Day Years Used Date Smoking Tobacco: Never Assessed Sex and Gender Information Value Date Recorded Sex Assigned at Not on file Legal Sex Male 8:47 PM EST Gender Identity Not on file Sexual Orientation Not on file Plan of Treatment Health Maintenance Due Date Last Done Comments Colorectal Cancer Screening: Colonoscopy 1955 DTaP,Tdap,and Td Vaccines (1 - Tdap) 09/23/1975 Pneumococcal Vaccine: 50+ Ye ars (1 of 1 - PCV) 2006 Zoster Vaccines (1 of 2) 2006 Abdominal Aortic Aneurysm (A AA) Screen 04/03/2023 Cholesterol Screening (Lipid Panel) 04/03/2023 Falls Risk Assessment 04/03/2023 Hepatitis C Screening 04/03/2023 Social Influencers of Health Screening 04/03/2023 Depression Screening 03/09/2024 COVID-19 Vaccine (1 - 2024-2 6 season) 2024 Influenza Vaccine (#1) 2024 RSV Immunization Adult [...]
== END 2025-02-15 15:41 | disposition home or self-care (01) ==
LOC: HO.ENCR 14:45
PROVIDERS: PCP Family Medicine; Visit Provider Student in an Organized Health Care Education/Training Program
DX: E11.65 Type 2 diabetes mellitus with hyperglycemia (principal); I73.9 Peripheral vascular disease, unspecified; Z96.41 Presence of insulin pump (external) (internal); Z13.9 Encounter for screening, unspecified
CPT/HCPCS: 99214

== ENCOUNTER → 2025-02-15 14:45 | Outpatient (BNVA) | payer MEDICARE, SELFPAY | PROVIDERS: PCP Family Medicine; Visit Provider Student in an Organized Health Care Education/Training Program | DX: E11.65 Type 2 diabetes mellitus with hyperglycemia (principal); I73.9 Peripheral vascular disease, unspecified; Z96.41 Presence of insulin pump (external) (internal) | CPT/HCPCS: 82947; 83036; 95249; 99212 ==